=== PATIENT | female | born 1980 | race Caucasian/White ===

== ENCOUNTER → 2020-09-02 12:22 | Outpatient (CLI) | payer BC, SELFPAY ==
--- NOTE | ~2020-09-02 | MM_ITS ---
EXAMINATION: MM screening [facility] BI w raine HISTORY: Screening mammogram TECHNIQUE: Craniocaudal and mediolateral oblique 3-D tomosynthesis images were obtained and synthetic 2-D images were generated. CAD analysis was submitted and interpreted. COMPARISON: 07/25/2019, 07/14/2019 BREAST PARENCHYMAL COMPOSITION: There are scattered areas of fibroglandular density. FINDINGS: There is no evidence of suspicious mass, calcification, or architectural distortion to sugg est malignancy in either breast. There has been no suspicious interval change. IMPRESSION: 1. No mammographic evidence of malignancy. 2. Recommend routine screening mammography in one year. BI-RADS Category 1: Negative Reviewed, dictated and finalized at location A. CIPAL ENGINEER
== END ==
PROVIDERS: PCP Physician Assistant; Visit Provider Physician Assistant
DX: Z12.31 Encounter for screening mammogram for malignant neoplasm of breast (principal)
CPT/HCPCS: 77063; 77067

== ENCOUNTER → 2021-12-16 12:14 | Outpatient (CLI) | payer BC, SELFPAY ==
--- NOTE | ~2021-12-16 | MM_ITS ---
EXAMINATION: MM screening [facility] BI w raine HISTORY: Screening mammogram TECHNIQUE: Craniocaudal and mediolateral oblique 3-D tomosynthesis images were obtained and synthetic 2-D images were generated. CAD analysis was submitted and interpreted. COMPARISON: 09/02/2020, 07/25/2019, 07/14/2019 BREAST PARENCHYMAL COMPOSITION: There are scattered areas of fibroglandular density. FINDINGS: There is no suspicious mass, calcification, or architectural distortion to suggest malignan cy in either breast. There has been no suspicious interval change. IMPRESSION: 1. No mammographic evidence of malignancy. 2. Recommend routine screening mammography in one year. BI-RADS Category 1: Negative Reviewed, dictated and finalized at location A.
== END ==
PROVIDERS: PCP Physician Assistant; Visit Provider Physician Assistant
DX: Z12.31 Encounter for screening mammogram for malignant neoplasm of breast (principal)
CPT/HCPCS: 77063; 77067

== ENCOUNTER → 2022-05-01 11:05 | Outpatient (CLI) | payer OTHER, SELFPAY ==
--- NOTE | ~2022-05-01 | XR_ITS ---
XR lumbar spine 2-3V DATE: 05/01/2022 11:48 INDICATION: Low back pain TECHNIQUE: AP, lateral, coned lateral lumbosacral views COMPARISON: None FINDINGS: There is minimal levoscoliosis of lumbar spine. No fracture or bone destruction is evident. The lumbar pedicles are intact. Lumbar and lumbosacral interspaces are well preserved. The sacral il iac joints appear normal. IMPRESSION: Minimal levoscoliosis Reviewed, dictated and finalized at location A. IMPRESSION: Minimal levoscoliosis
--- NOTE | ~2022-05-01 | XR_ITS ---
XR hip LT min 2V DATE: 05/01/2022 11:48 INDICATION: Left hip pain TECHNIQUE: AP and lateral views COMPARISON: None FINDINGS: No fracture or dislocation, avascular necrosis or bone destruction. Left hip joint space ap pears well preserved. The pubic symphysis is intact. There is mild degenerative change at the sacroiliac joints. IMPRESSION: Mild degenerative change at the sacroiliac joints Negative left hip Reviewed, dictated and finalized at location A.
--- NOTE | ~2022-05-01 | XR_ITS ---
XR_[id number]_CR DATE: 05/01/2022 11:48 INDICATION: Constant margin chest pain TECHNIQUE: PA chest. 3 views of the left ribs. COMPARISON: None FINDINGS: Normal heart size. No hilar or mediastinal enlargement. The lungs are normally expanded and clear of infiltrate or consolidation. No pleural effusion or pneumothorax. Minimal dextroscoliosis o f the thoracic spine. No left rib fracture or bone destruction is detected. IMPRESSION: Negative left ribs Reviewed, dictated and finalized at Location A. Reviewed, dictated and finalized at location A. IMPRESSION: Negative left ribs
== END ==
PROVIDERS: PCP Physician Assistant; Visit Provider Physician Assistant
DX: R10.10 Upper abdominal pain, unspecified (principal); M25.552 Pain in left hip; R07.81 Pleurodynia; M53.3 Sacrococcygeal disorders, not elsewhere classified
CPT/HCPCS: 71101; 72100; 73502

== ENCOUNTER → 2022-06-03 10:13 | Outpatient (CLI) | payer OTHER, SELFPAY ==
--- NOTE | ~2022-06-03 | US_ITS ---
EXAMINATION: US abdomen complete DATE: 06/03/2022 11:11 INDICATION: Upper abd pain TECHNIQUE: Multiple grayscale and Doppler ultrasound images of the abdomen were obtained. COMPARISON: None available. FINDINGS: The visualized portions of the pancreas are normal. The liver is normal with normal echogen icity and echotexture. No surface nodularity. Normal hepatopetal flow in the main portal vein. The ga llbladder is normal with no abnormal wall thickening, pericholecystic fluid or stones. The common shannan e duct measures 5 mm. There was no sonographic Everett sign. The visualized portions of the aorta and inferior vena cava are normal. The right kidney measures 11.0 x 3.9 x 4.6. The left kidney measures 11.2 x 4.7 x 4.8. The kidneys de monstrate normal parenchymal echogenicity. There is no hydronephrosis. The spleen is normal in appear ance and measures 8.0 x 3.4 x 3.9 cm. IMPRESSION: Normal abdominal ultrasound findings. Reviewed, dictated and finalized at location K. NILE PROBATION OFFICER
== END ==
PROVIDERS: PCP Physician Assistant; Visit Provider Physician Assistant
DX: R10.10 Upper abdominal pain, unspecified (principal); M25.552 Pain in left hip; M54.50 Low back pain, unspecified; R07.81 Pleurodynia
CPT/HCPCS: 76700

== ENCOUNTER 2022-06-13 08:15 | Outpatient (CLI) | payer OTHER, SELFPAY ==
--- NOTE | ~2022-06-13 | XR_ITS ---
UGI-AIR CONTRAST/SMALL BOWEL INDICATION: Nausea. Decreased appetite. TECHNIQUE: Serial images of the upper GI tract structures and small bowel are performed following ora l administration of barium using double contrast technique. COMPARISON: None FINDINGS: Barium flowed readily through the esophagus. There is a small sliding hiatal hernia with re flux. Gastric contour, mucosa and motility are normal. The duodenal bulb fills and empties regularly and has a normal mucosal pattern. The duodenal sweep is in normal position. The mucosal pattern of the small bowel is unremarkable with normal transit time to the colon. IMPRESSION: 1: Small sliding hiatal hernia with reflux. Otherwise, unremarkable upper GI tract/small bowel.. Reviewed, dictated and finalized at location A. CTOR OF HOME CARE HOSPICE IMPRESSION: 1: Small sliding hiatal hernia with reflux. Otherwise, unremarkable upper GI tr act/small bowel..
== END 2022-06-13 08:16 | disposition home or self-care (01) ==
LOC: ANHIMG 08:17
PROVIDERS: PCP Physician Assistant; Visit Provider Physician Assistant
DX: R10.10 Upper abdominal pain, unspecified (principal); M25.552 Pain in left hip; M54.50 Low back pain, unspecified; R07.81 Pleurodynia; K44.9 Diaphragmatic hernia without obstruction or gangrene
CPT/HCPCS: 74246; 74248

== ENCOUNTER 2022-09-28 00:55 | Day surgery (SDC) | payer OTHER, SELFPAY ==
[2022-09-15 12:46] VITALS: BMI 19.6
--- NOTE | 2022-09-27 16:48 | P.HP_ITS ---
History of Present Illness History of Present Illness Consent: Risks, benefits, and alternatives have been discussed and questions answered. Patient agrees to proceed with procedure. Chief complaint: Epigastric Pain Narrative: Christina Majano is a 42 year old female Was referred for investigation of persistent abdominal pain despite taking pantoprazole 40 mg per day. She also experiences nausea frequently. She has lost about 20 lb. Recently sucralfate was added to her regimen Review of Systems Review of Systems: All systems reviewed & are unremarkable except as noted in HPI and below PMFSH Past Medical History Medical History Anxiety Family History Family History Mother Hypertension Family history of elevated blood lipids Family history of diabetes mellitus in first degree relative Sibling Family history of diabetes mellitus in first degree relative Social History Social History Smoking status: Never smoker Alcohol intake: current Substance use: current Substance use type: marijuana Other substance usage details: [facility] Living arrangements: with family Spiritual care concerns: No Meds Home Medications and Allergies Home Medications Medication Instructions Recorded Confirmed Type fluoxetine 20 mg tablet 20 mg PO DAILY 09/15/22 09/15/22 History pantoprazole 40 mg tablet,delayed 40 mg PO DAILY 09/15/22 09/15/22 History release Allergies Allergy/AdvReac Type Severity Reaction Status Date / Time No Known Allergies Allergy Unknown Verified 09/28/22 08:30 Exam Const: General: alert Orientation/consciousness: patient oriented x3 Resp: Auscultation: clear to auscultation bilaterally Cardio: Rhythm: regular rhythm GI: GI Palp: Yes Soft to palpation and No Tenderness to palpation present (GI) Neuro: General: patient oriented x3 Assessment and Plan Assessment and plan (1) Epigastric pain: Code(s): R10.13 - Epigastric pain Status: Acute Assessment and Plan: EGD with possible biopsy or dilatation or cautery.
--- NOTE | 2022-09-28 07:36 | WPDANESEPPF ---
Anes - Initial Pre Proc Eval Procedure: Operation Date: 09/28/22 09:30 Proposed Procedures p Esophagogastroduodenoscopy - Jaylon Sullivan MD Date/Time: 09/28/22 07:36 Surgeon: Jaylon Sullivan MD Pre Op Diagnosis: Epigastric Pain Patient Data Age: 42 Gender: F Height: 1.63 m Weight: 52 kg Allergies Allergy/AdvReac Type Severity Reaction Status Date / Time No Known Allergies Allergy Unknown Verified 09/28/22 08:30 Home Medications Medication Instructions Recorded Confirmed Type fluoxetine 20 mg tablet 20 mg PO DAILY 09/15/22 09/15/22 History pantoprazole 40 mg tablet,delayed 40 mg PO DAILY 09/15/22 09/15/22 History release Patient hx anesthesia problems: none Family hx anesthesia problems: none Results Review: All pre-operative results and documents have been reviewed as part of the pre-operative evaluation. [facility] Past Medical History Medical History (Updated 09/28/22 @ 07:36 by Helder Gupta DO) Anxiety Family History Family History (System 07/18/22 @ 12:40 by Juancho Magallanes) Mother Hypertension Family history of elevated blood lipids Family history of diabetes mellitus in first degree relative Sibling Family history of diabetes mellitus in first degree relative Social History Social History (System 07/18/22 @ 12:40 by Juancho Magallanes) Smoking status: Never smoker Alcohol intake: current Substance use: current Substance use type: marijuana Other substance usage details: [facility] Living arrangements: with family Spiritual care concerns: No Anes - Eval Final PreProcedure Day of Procedure 09/28/22 07:36 Patient weight: normal Heart: regular rate and rhythm Lungs: clear to auscultation and normal air movement Airway: Mallampati scale class II Neurological: alert and oriented Last oral intake: >/= 8 hours ASA classification: II Emergent: no Anesthetic plan: proceed Anesthesia type and monitoring: general GIVS and standard monitoring Results Review: All pre-operative results and documents have been reviewed as part of the pre-operative evaluation. Informed Consent: The patient's anesthetic plan and its attendant risks and benefits were discussed with the patient/family/POA. Questions were solicited and answers provided to the satisfaction of the patient/family/POA.
[2022-09-28 08:31] VITALS: BP 110/73; PULSE 60; RESP 18; TEMP 36.4; O2SAT 100
[2022-09-28] MEDS: LACTATED RINGERS 1,000 ML 150 ML IV CONT (08:38)
[2022-09-28 09:43] VITALS: BP 104/64; PULSE 59; RESP 15; O2SAT 100
[2022-09-28 09:53] VITALS: BP 108/64; PULSE 61; RESP 16; O2SAT 100
[2022-09-28 10:03] VITALS: BP 110/78; PULSE 65; RESP 20; O2SAT 100
== END 2022-09-28 10:08 | disposition home or self-care (01) ==
PROVIDERS: PCP Physician Assistant; Visit Provider Internal Medicine Gastroenterology
PROC: 0DJ08ZZ Inspection of Upper Intestinal Tract, Via Natural or Artificial Opening Endoscopic (ICD-10-PCS; CPT 43235; principal; 2022-09-28 09:30)
DX: K21.9 Gastro-esophageal reflux disease without esophagitis (principal); K29.70 Gastritis, unspecified, without bleeding; F41.9 Anxiety disorder, unspecified; F12.90 Cannabis use, unspecified, uncomplicated
CPT/HCPCS: 43239; 87081; 88305; J2001; J2704; J7120

== ENCOUNTER 2023-12-18 14:50 | Outpatient (CLI) | payer OTHER, SELFPAY ==
--- NOTE | ~2023-12-18 | MM_ITS ---
EXAMINATION: MM screening [facility] BI w raine HISTORY: Screening TECHNIQUE: Craniocaudal and mediolateral oblique 3-D tomosynthesis images were obtained and synthetic 2-D images were generated. CAD analysis was submitted and interpreted. COMPARISON: Comparison to multiple prior studies sequentially, with oldest reviewed study dated 12/2019. BREAST PARENCHYMAL COMPOSITION: Not dense: There are scattered areas of fibroglandular density. FINDINGS: There is no evidence of suspicious mass, calcification, or architectural distortion to sugg est malignancy in either breast. There has been no suspicious interval change. IMPRESSION: 1. No mammographic evidence of malignancy. 2. Recommend routine screening mammography in one year. BI-RADS Category 1: Negative Reviewed, dictated and finalized at location B.
== END 2023-12-18 14:51 | disposition home or self-care (01) ==
PROVIDERS: PCP Physician Assistant; Visit Provider Physician Assistant
DX: Z12.31 Encounter for screening mammogram for malignant neoplasm of breast (principal)
CPT/HCPCS: 77063; 77067

== ENCOUNTER 2024-05-17 22:40 | Emergency (ER) | payer OTHER, SELFPAY ==
--- NOTE | ~2024-05-17 | XR_ITS ---
Portable chest x-ray Comparison: None Clinical History: Palpitations Findings: Lungs are clear, without focal consolidation or pleural effusion. Cardiomediastinal silho uette is unremarkable. Bones and soft tissues are unremarkable. Impression: Normal chest Reviewed, dictated and finalized at location . ATION TECHNICIAN Impression: Normal chest
--- NOTE | 2024-05-17 22:43 | PC.NURSE ---
upon pt arrival into room pt attempted to do a vasal vagal maneuver and was unsuccessful.
[2024-05-17 22:45] VITALS: BP 153/94; BP 154/94; PULSE 155; PULSE 160; RESP 16; RESP 28; TEMP 36.4; O2SAT 100
--- NOTE | 2024-05-17 22:46 | ECG_ITS ---
Test Date: 2024-05-17 22:49:28 Measurements Intervals [place] Rate: 153 P: 76 GA: 119 QRS: 79 QRSD: 90 T: -76 QT: 218 QTc: 348 Interpretive Statements SINUS TACHYCARDIA WITH SHORT GA INTERVAL, POSSIBLE ATRIAL FLUTTER ST DEVIATION AND MODERATE T-WAVE ABNORMALITY, CONSIDER ANTEROLAT/INF ISCHEMIA BASELINE ARTIFACT- I, II, III, AVR, AVL, AVF ABNORMAL ECG No previous ECG available for comparison Electronically Signed On 05-18-2024 07:06:28 RESEARCH COORDINATOR by Vish Swan D.O.
[2024-05-17 22:50] VITALS: BP 153/94; PULSE 149; PULSE 164; RESP 15; O2SAT 100
--- NOTE | 2024-05-17 22:52 | PC.NURSE ---
pt states she took a 100mg grummy of thc prior to arrival at around 2130. pt states she normally takes gummies. pt states she has a hx of anxiety.
[2024-05-17] MEDS: SODIUM CHLORIDE 0.9% IV 1,000 ML 999 ML IV CONT (22:54)
--- NOTE | 2024-05-17 22:55 | PC.NURSE ---
mahesh javier attempted vasal vagal maneuver with reverse trendelenburg with patient. pt heart rate changed to 134 sinus tach while bolus of fluids infusing.
[2024-05-17 22:57] LABS: Basophils Percent Auto 0.4 % (0.2-1.2); Eosinophils Absolute Auto 0.2 K/mm3 (0-0.3); Eosinophils Percent Auto 1.6 % (0-4.4); Hematocrit 37.3 % (37.0-47.0); Hemoglobin 12.7 g/dL (12.0-15.0); Immature Granulocyte Absolute 0.02 K/mm3 (0.00-0.031); Immature Granulocyte Percent A 0.2 % (0-0.5); Lymphocytes Absolute Auto 3.28 K/mm3 (0.9-3.2); Lymphocytes Percent Auto 34.5 % (18.3-44.2); Mean Corpuscular Hemoglobin 30.4 pg (26-34); Mean Corpuscular Volume 89.2 fl (80-100); Mean Platelet Volume 9.2 fl (7.4-10.4); Monocytes Absolute Auto 0.7 K/mm3 (0.1-0.6); Monocytes Percent Auto 7.5 % (2.6-8.5); Neutrophils Absolute Auto 5.3 K/mm3 (1.3-6.7); Neutrophils Percent Auto 55.8 % (45.5-73.1); Platelet Count Result 252 k/mm3 (150-375); Red Blood Count 4.18 M/mm3 (4.2-5.4); Red Cell Distribution Width 12.5 % (11.5-14.5); White Blood Count 9.5 K/mm3 (4.5-10.0)
--- NOTE | 2024-05-17 22:59 | ED.ARRPALP ---
HPI - Arrhythmia/Palpitations General Chief Complaint: Arrhythmia/Palpitations Stated Complaint: Heart rate up and down Time Seen by Provider: 05/17/24 22:47 Source: patient Mode of arrival: ambulatory Limitations: no limitations History of Present Illness HPI narrative: This is a 44 year old female that presents to the ER for palpitations. Reports she ate a week gummy tonight. Started to feel like her heart was racing. Reports chest pressure and shortness of breath. Related Data Home Medications Medication Instructions Recorded Confirmed fluoxetine 20 mg tablet 20 mg PO DAILY 09/15/22 09/15/22 pantoprazole 40 mg tablet,delayed 40 mg PO DAILY 09/15/22 09/15/22 release Allergies Allergy/AdvReac Type Severity Reaction Status Date / Time No Known Allergies Allergy Unknown Verified 05/17/24 22:54 Review of Systems Review of Systems: CONSTITUTIONAL: Denies fever CARDIOVASCULAR: Reports chest pain, palpitations. Denies edema. RESPIRATORY: Denies cough or dyspnea. All systems reviewed & are unremarkable except as noted in HPI and below PMFSH Past Medical History Medical History Anxiety Family History Family History Mother Hypertension Family history of elevated blood lipids Family history of diabetes mellitus in first degree relative Sibling Family history of diabetes mellitus in first degree relative Social History Social History Smoking status: Never smoker Alcohol intake: current Substance use: current Substance use type: marijuana [facility] Living arrangements: with family Spiritual care concerns: No Exam Narrative: GENERAL: Well-appearing, well-nourished, and in no acute distress. HEAD: Normocephalic, atraumatic. EYES: EOMI. NECK: Supple. No JVD CHEST: Clear to auscultation. No respiratory distress. No wheezes rales or rhonchi HEART: Tachycardic, regular rate. No murmur heard. Normal peripheral pulses. EXTREMITIES: Normal range of motion. No edema. SKIN: Warm, dry, no rash. NEURO: No focal deficits. Alert and oriented x3. PSYCH: Normal mood and affect Course Course Emergency Course: patient reports relief in her discomfort. She is currently resting Vital Signs Vital signs: Vital Signs Temperature 97.5 F L 05/17/24 22:45 Pulse Rate 155 H 05/17/24 22:45 Respiratory Rate 16 05/17/24 22:45 Blood Pressure 154/94 H 05/17/24 22:45 Pulse Oximetry 100 05/17/24 22:45 Oxygen Delivery Room Air 05/17/24 22:45 Temperature 97.5 F L 05/17/24 22:45 Pulse Rate 112 H 05/17/24 23:45 Respiratory Rate 22 H 05/17/24 23:45 Blood Pressure 124/93 H 05/17/24 23:45 Pulse Oximetry 100 05/17/24 23:45 Oxygen Delivery Room Air 05/17/24 22:50 MDM - Arrhythmia/Palpitations MDM Narrative Medical decision making narrative: patient presents to the emergency department for elevated heart rate. Reports eating a cannabis gummy prior to. Patient with sinus tachycardia with rates in the 150s. Heart rate has now down trended after IV fluids and a dose of Ativan. Heart rate now 106. CBC without concerning findings. Metabolic panel with mild hypokalemia, potassium was replaced. TSH is normal. Urine without evidence of infection. Drug screen positive for cannabinoids. Chest x-ray without acute cardiopulmonary abnormality. patient reports relief in her discomfort. She is currently resting. Instructed to have close follow-up with her primary provider. She was given warnings to return to the ER Differential Diagnosis Differential diagnosis: Likely palpitations, anxiety, sinus tachycardia, artial fibrillation, artial flutter and supraventricular tachycardia Lab Data Attestation: I reviewed the patient's lab results. 05/17/24 22:49 05/17/24 22:49 Labs: Lab Results 05/17/24 05/17/24 Range/Units 22:49 23:53 WBC 9.5 (4.5-10.0) K/mm3 RBC 4.18 L (4.2-5.4) M/mm3 Hgb 12.7 (12.0-15.0) g/dL Hct 37.3 (37.0-47.0) % MCV 89.2 (80-100) fl MCH 30.4 (26-34) pg MCHC 34.0 (32-36) g/dl RDW 12.5 (11.5-14.5) % Plt Count 252 (150-375) k/mm3 MPV 9.2 (7.4-10.4) fl Immature Gran % (Auto) 0.2 (0-0.5) % Neut % (Auto) 55.8 (45.5-73.1) % Lymph % (Auto) 34.5 (18.3-44.2) % Davison % (Auto) 7.5 (2.6-8.5) % Eos % (Auto) 1.6 (0-4.4) % Baso % (Auto) 0.4 (0.2-1.2) % Lymph # (Auto) 3.28 H (0.9-3.2) K/mm3 Davison # (Auto) 0.7 H (0.1-0.6) K/mm3 Eos # (Auto) 0.2 (0-0.3) K/mm3 Baso # (Auto) 0.0 (0.0-0.1) K/mm3 Abs Immat Gran (auto) 0.02 (0.00-0.031) K/mm3 Absolute Neuts (auto) 5.3 (1.3-6.7) K/mm3 Absolute Nucleated RBC 0.000 (0.0-0.012) K/mm3 Nucleated RBC % 0.0 (0.0-0.2) % Sodium 136 L (137-145) mmol/L Potassium 3.1 L (3.4-5.0) mmol/L Chloride 102 (98-107) mmol/L Carbon Dioxide 25 (22-30) mmol/L Anion Gap 9 (4-12) mmol/L BUN 17 (7-17) mg/dL Creatinine 0.60 L (0.7-1.0) mg/dL Estim Creat Clear Calc 87 ml/min Estimated GFR > 60 (59 - ) Glucose 165 H (65-110) mg/dL Calcium 9.0 (8.4-10.2) mg/dL Magnesium 1.9 (1.6-2.3) mg/dL Total Bilirubin 0.3 (0.2-1.3) mg/dL AST 25 (14-36) U/L ALT 12 (6-35) U/L Alkaline Phosphatase 76 (38-126) U/L Total Protein 8.0 (6.3-8.2) g/dL Albumin 4.5 (3.5-5.1) g/dL TSH (Reflex) 4.160 (0.465-4.68) uIU/mL Free T4 0.98 (0.78-2.19) ng/dL Total T3 Pending Urine Color Yellow (Yellow) Urine Appearance Clear (Clear) Urine pH 5.5 (5.0-9.0) Ur Specific [place] 1.025 (1.001-1.035) Urine Protein Negative (Negative) mg/dL Urine Glucose (UA) Negative (Negative) mg/dL Urine Ketones Negative (Negative) mg/dL Ur Blood (Man) Negative (Negative) Urine Nitrate Negative (Negative) Urine Bilirubin Negative (Negative) Urine Urobilinogen 0.2 (<2.0) mg/dL Leukocyte Esterase Rfl Negative (Negative) [place]/UL Urine Opiates Screen Negative (Negative) Urine Methadone Screen Negative (Negative) Ur Barbiturates Screen Negative (Negative) Ur Phencyclidine Scrn Negative (Negative) Ur Amphetamine Screen Negative (Negative) U Benzodiazepines Scrn Negative (Negative) Urine Cocaine Screen Negative (Negative) U Cannabinoids Screen Positive A (Negative) Imaging Data Radiologist's impression: Chest x-ray: No focal consolidation, pleural effusion, or pneumothorax. No cardiomegaly ECG Data EKG #1: ECG completion date: 05/17/24 EKG Interpretation: tachycardia, sinus rhythm, ST depression and normal QT EKG #2: ECG completion date: 05/18/24 EKG Interpretation: tachycardia, sinus rhythm, no ST changes and normal QT Critical Care Time Critical Care Time Critical Care Time: No Discharge Plan Discharge Clinical Impression: Sinus tachycardia Patient Disposition: Home, Self-Care Condition: Improved Instructions: Tachycardia (ED) Additional Instructions: Return to the Emergency Department if you experience fever, chest pain, shortness of breath, your heart is racing, or any other symptoms that are concerning to you Rest. Remain well hydrated. Take your home medications as prescribed Follow up with your primary care doctor Prescriptions: No Action pantoprazole 40 mg Tablet,Delayed Release (Dr/Ec) 40 mg PO DAILY fluoxetine 20 mg Tablet 20 mg PO DAILY Follow-up/Referrals: Guillermo,JUNG Cedeno [Primary Care Provider] - 3 Days
[2024-05-17 23:00] VITALS: BP 133/94; PULSE 134; RESP 18; O2SAT 100
[2024-05-17 23:13] LABS: Alanine Aminotransferase 12 U/L (6-35); Albumin Level 4.5 g/dL (3.5-5.1); Alkaline Phosphatase 76 U/L (38-126); Anion Gap 9 mmol/L (4-12); Aspartate Amino Transferase 25 U/L (14-36); Bilirubin,Total 0.3 mg/dL (0.2-1.3); Blood Urea Nitrogen 17 mg/dL (7-17); Carbon Dioxide 25 mmol/L (22-30); Chloride 102 mmol/L (98-107); Estimated CRCL calculation 87 ml/min; Estimated Glomerular Filt Rate > 60; Glucose 165 mg/dL (65-110); Potassium 3.1 mmol/L (3.4-5.0); Sodium 136 mmol/L (137-145)
[2024-05-17 23:15] VITALS: BP 140/103; PULSE 127; RESP 16; O2SAT 100
[2024-05-17 23:30] VITALS: BP 135/96; PULSE 116; RESP 18; O2SAT 100
[2024-05-17 23:45] VITALS: BP 124/93; PULSE 112; RESP 22; O2SAT 100
[2024-05-17 23:54] LABS: Magnesium 1.9 mg/dL (1.6-2.3)
[2024-05-18 00:11] LABS: Add Urine Microscopic? NO; Appearance Urine Clear (Clear); Bilirubin Urine Negative (Negative); Blood Urine Negative (Negative); Color Urine Yellow (Yellow); Glucose Urine UA Negative (Negative); Ketones Urine Negative (Negative); Leukocyte Esterase Ur Negative LEU/UL (Negative); Nitrate Urine Negative (Negative); Protein Urine Negative (Negative); Specific Grav Ur 1.025 (1.001-1.035); Urobilinogen Urine 0.2 mg/dL (<2.0); pH Urine 5.5 (5.0-9.0)
[2024-05-18] MEDS: SODIUM CHLORIDE 0.9% IV 1,000 ML 999 ML IV CONT (00:13)
[2024-05-18] MEDS: POTASSIUM CHLORIDE 20 MEQ ER TABLET 40 MEQ PO (00:13)
[2024-05-18] MEDS: LORazepam INJ (*CRX) 2 MG/ML VIAL 0.5 MG IV PUSH (00:14)
[2024-05-18 00:15] VITALS: BP 115/86; PULSE 110; RESP 16; O2SAT 99
[2024-05-18 00:29] LABS: Amphetamine Screen Urine Negative (Negative); Barbiturate Screen Urine Negative (Negative); Benzodiazepines Screen Urine Negative (Negative); Cannabinoid Screen Urine Positive (Negative); Cocaine Screen Urine Negative (Negative); Methadone Screen Urine Negative (Negative); Opiate Screen Urine Negative (Negative); Phencyclidine Screen Urine Negative (Negative)
[2024-05-18 00:42] LABS: Free T4 Free Thyroxine Reflex 0.98 ng/dL (0.78-2.19)
--- NOTE | 2024-05-18 00:55 | ECG_ITS ---
Test Date: 2024-05-18 01:10:31 Measurements Intervals [place] Rate: 110 P: 52 [place]: 153 QRS: 74 QRSD: 82 T: 38 QT: 314 QTc: 426 Interpretive Statements SINUS TACHYCARDIA LOW QRS VOLTAGE IN PRECORDIAL LEADS NONSPECIFIC ST-T WAVE ABNORMALITY- ANTEROLAT/INF LEADS BASELINE ARTIFACT- I, II, III, AVR, AVL, AVF BORDERLINE ECG Compared to ECG 05/17/2024 22:49:28 HEART RATE HAS DECREASED POSSIBLE ISCHEMIA NO LONGER PRESENT Electronically Signed On 05-18-2024 07:07:26 FAGOTER by Vish Swan D.O.
[2024-05-18 01:17] VITALS: PULSE 107; RESP 16; O2SAT 97
[2024-05-18 01:37] LABS: Total Triiodothyronine (T3) 1.29 NG/ML (0.97-1.69)
== END 2024-05-18 01:36 | disposition home or self-care (01) ==
PROVIDERS: Emergency Provider Physician Assistant; PCP Physician Assistant
DX: R00.0 Tachycardia, unspecified (principal); F41.9 Anxiety disorder, unspecified; Z79.899 Other long term (current) drug therapy
CPT/HCPCS: 36415; 71045; 80053; 80307; 81003; 83735; 84439; 84443; 84480; 85025; 93005; 96361; 96374; 99284; A9270; J2060; J7030

== ENCOUNTER 2024-09-11 15:11 | Outpatient (CLI) | payer OTHER, SELFPAY ==
[2024-09-11 15:57] LABS: Basophils Percent Auto 0.4 % (0.2-1.2); Eosinophils Absolute Auto 0.1 K/mm3 (0-0.3); Eosinophils Percent Auto 0.9 % (0-4.4); Hematocrit 37.3 % (37.0-47.0); Hemoglobin 12.5 g/dL (12.0-15.0); Immature Granulocyte Absolute 0.01 K/mm3 (0.00-0.031); Immature Granulocyte Percent A 0.2 % (0-0.5); Lymphocytes Absolute Auto 1.59 K/mm3 (0.9-3.2); Lymphocytes Percent Auto 29.2 % (18.3-44.2); Mean Corpuscular HGB Conc 33.5 g/dl (32-36); Mean Corpuscular Hemoglobin 30.3 pg (26-34); Mean Corpuscular Volume 90.3 fl (80-100); Monocytes Absolute Auto 0.3 K/mm3 (0.1-0.6); Monocytes Percent Auto 6.1 % (2.6-8.5); Neutrophils Absolute Auto 3.5 K/mm3 (1.3-6.7); Neutrophils Percent Auto 63.2 % (45.5-73.1); Platelet Count Result 250 k/mm3 (150-375); Red Blood Count 4.13 M/mm3 (4.2-5.4); Red Cell Distribution Width 12.3 % (11.5-14.5); White Blood Count 5.5 K/mm3 (4.5-10.0)
[2024-09-11 16:09] LABS: Alanine Aminotransferase 14 U/L (6-35); Albumin Level 4.2 g/dL (3.5-5.1); Alkaline Phosphatase 52 U/L (38-126); Anion Gap 8 mmol/L (4-12); Aspartate Amino Transferase 21 U/L (14-36); Bilirubin,Total 0.3 mg/dL (0.2-1.3); Blood Urea Nitrogen 11 mg/dL (7-17); Calcium 8.9 mg/dL (8.4-10.2); Carbon Dioxide 26 mmol/L (22-30); Chloride 102 mmol/L (98-107); Estimated Glomerular Filt Rate > 60; Glucose 79 mg/dL (65-110); Potassium 4.1 mmol/L (3.4-5.0); Sodium 136 mmol/L (137-145)
--- OUTSIDE RECORDS SUMMARY | 2024-09-11 16:27 | XMS_ITS | Clinical Summary ---
Author Organization [facility] Address [address] [place] [address] Care Team Providers Care Pier Master Assistant Name Role Phone Pao Bolanos Primary Care Pr ovider Source Comments [facility],non-owned Affiliates and Associated Physician Practices is amultiple site organization consisting of ambulatory clinics and hospital sitesin [place], [place], [place] and [place]. This disclosure is being madepursuant to the Care Everywhere program and may not contain all information available regarding this patient. Last updated 18.[employer] [facility] Allergies No known active allergies Medications Be aware that medications may not be up to date on this document. Always verify current medications with the patient. No known medications Active Problems No known active problems Family History Medical History Relation Name Comments Arthritis - Rheumatoid Father Hypertension Father Arthritis - Rheumatoid Mother Bipolar Disorder Mother CAD (Coronary Artery Disease) Mother CVA Mother Diabetes - Type 2 Mother Drug Abuse Mother Hypertension Mother Migraine Mother Other Mother stomach ulcer & tension headaches Other - Hepatic/Liver Mother Renal Disease Mother Seizures Mother Arthritis - Rheumatoid Sister Bipolar Disorder Sister Diabetes - Type 2 Sister Drug Abuse Sister Hypertension Sister Migraine Sister Schizophrenia Sister Relation Name Status Comments Father Alive Mother Sister Alive Social History Tobacco Use Types Packs/Day Years Used Date Smoking Tobacco: Never Smokeless Tobacco: Never Alcohol Use Standard Drinks/Week Comments Yes 0 (1 standard drink = 0.6 oz pur e alcohol) Sex and Gender Information Value Date Recorded Sex Assigned at Not on file Gender Identity Female 01/18/2018 9:17 AM CDT Sexual Orientation Not on file Last Filed Vital Signs Vital Sign Reading Time Taken Comments Blood Pressure 124/82 02/04/2018 11:47 AM CDT Pulse 60 02/04/2018 11:47 AM CDT Temperature - - Respiratory Rate 16 02/04/2018 11:47 AM CDT Oxygen Saturation 100% 02/04/2018 11:47 AM CDT Inhaled Oxygen Concentration - - Weight 56.7 kg (125 lb) 02/04/2018 11:47 AM CDT Height 162.6 cm (5' 4 ) 02/04/2018 11:47 AM CDT Body Mass Index 21.46 02/04/2018 11:47 AM CDT Plan of Treatment Health Maintenance Due Date Last Done Comments COLOGUARD (AGES 45-75) - COL ON CA SCREENING 1979 COLON MONITORING 1979 COLONOSCOPY - COLON CA SCREENING 1979 CT COLONOGRAPHY - COLON CA SCREENING 1979 Colorectal Cancer Screening 1979 FIT - COLON CA SCREENING 1979 FLEX SIG - COLON CA SCREENING 1979 LIPID TESTING 1979 MAMMOGRAM 1979 PAP SMEAR 1979 HIV SCREENING 1994 HEPATITIS C SCREENING 05/05/1997 DTAP/TDAP/TD VACCINES (1 - Tdap) 1998 HEPATITIS B VACCINE (1 of 3 - 19+ 3-dose series) 1998 COVID-19 VACCINE (1 - 2023-2 5 season) 2024 INFLUENZA VACCINE (#1) 2024 DEPRESSION SCREENING 07/09/2024 ZOSTER VACCINE (1 of 2) 2029 HIB VACCINE Aged Out No longer eligi ble based on patient's age to complete this topic HPV VACCINE Aged Out No longer eligi ble based on patient's age to complete this topic MENINGOCOCCAL (Group B) VACCINE Aged Out No longer eligible based on patient's age to complete this topic MENINGOCOCCAL VACCINE Aged Out No denise juan eligible based on patient's age to complete this topic PNEUMOCOCCAL VACCINE Aged Out No long er eligible based on patient's age to complete this topic Care Teams Pier Master Assistant Relationship Specialty Start Date End Date Pao Bolanos PA [address] [place] [address] [place] [id number] PCP - General 10/23/22
--- OUTSIDE RECORDS SUMMARY | 2024-09-11 16:27 | XMS_ITS | Data Portability ---
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 Plan of Treatment Reminders Order Date Submit Date Provider Last Modified By Organization Details Last Modified Time Details Appointments ANY 15 2024 02:00P M KADEN Matson Not available Not available Not available Lab TSH + free T4, serum 2023 Work in Field [facility], [address], [place], [address], 05/22/2024 09:33:58 lipid panel, serum 2023 Work in Field [facility], [address], [place], [address], 05/22/2024 09:33:58 CMP, serum or plasma [facility]23 [facility], [address], [place], [address], 05/29/2024 12:07:33 CBC w/ auto diff [facility], [address], [place], [address], 05/29/2024 12:08:04 HbA1c (hemog lobin A1c), blood 2023 [facility], [address], [place], [address], 05/29/2024 12:07:54 Referral None record ed. Procedures None record ed. Surgeries None record ed. Imaging None record ed. Medication Orders Prozac 10 mg capsul e 2023 024 [facility], [address], [place], [address], 05/30/2024 13:38:22 Patient TargetsNo targets recorded. Patient InstructionsNo instructions recorded. Reason for Referral None Reported. Results Created Date Observation Date Name Description Value Unit Range Abnormal Flag Note LastModifiedBy Organization Detail LastModifiedTime 09/12/19 elect rocar diogr am No observ ation record ed. ABHISHEK In-Office Order Internal Use Only DO Not Attach Compendium DO Not Attach Compendium, Do Not Delete/merge, [id number] 09/11/2024 15:37:50 09/12/19 25 09/11/2024 elect rocar diogr am No observ ation record ed. ABHISHEK In-Office Order Internal Use Only DO Not Attach Compendium DO Not Attach Compendium, Do Not Delete/merge, [id number] 09/11/2024 15:45:31 Result Notes None recorded. Problems Name Problem SNOMED Code Status Onset Date Resolution Date Notes Provider Name and Address Organization Details Recorded Time Premenstrual dysphoric disorder 339229 Active 2023 KADEN Matson Attn: Maggy g,[address] [place], [address] [place] [address] 4 09:57:34 Body mass index 20-24 - normal 236614043 Active 2024 Claire Gilbert [facility], [place] - [facility] 5 15:07:38 Problem Notes None recorded. Procedures Surgical History Date Name Laterality Status Provider Name and Address Organization Details Recorded Time section completed Jack Quinonez [place] 05/08/2024 09:50:28 LEEP completed Jack Quinonez [place] 05/08/2024 11:33:54 Imaging Results Imaging Date Name Status LastModified by Organization Details LastModified Time 09/11/2024 electrocardiogram completed ABHISHEK In-Offi ce Order Internal Use Only DO Not Attach Compendium DO Not Attach Compendium, Do Not Delete/merge, [id number] 09/11/2024 15:37:50 09/11/2024 electrocardiogram completed ABHISHEK In-Offi ce Order Internal Use Only DO Not Attach Compendium DO Not Attach Compendium, Do Not Delete/merge, [id number] 09/11/2024 15:45:31 Procedure Notes None recorded. Medical Equipment None Reported. Allergies No known drug allergies Medications Name Sig Start Date Stop Date Status Note LastModified by Organization Details LastModified Time fluoxetine 10 mg capsule TAKE 1 CAPSULE BY MOUTH ONCE DAILY 05/30 completed Not Available Not Available Not Available fluoxetine 20 mg capsule TAKE 1 CAPSULE BY MOUTH ONCE DAILY active Not Available Not Available No t Available clonazepam 0.25 mg disintegrat ing tablet Place 1 tablet twice a day by transling ual route as needed, for anxiety breakthro ugh. 2023 active Not Available Not Available Not Avai lable Vitals Date Recorded Body weight Respiratory rate Body mass index (BMI) Body height Oxygen saturation Oxygen saturation in Arterial blood by Pulse oximetry Heart rate Systolic blood pressure Diastolic blood pressure Provider Name and Address Organization Details Last Updated DateTime 4 35357.6 4 g 18 /min 21.6 kg/m2 162.56 cm 100 % 100 % 77 /min 118 mm[Hg] 82 mm[Hg] Jack Quinonez [place] - [facility] 4 09:52:46 Date Recorded Body height Body mass index (BMI) Body weight Respiratory rate Oxygen saturation Oxygen saturation in Arterial blood by Pulse oximetry Heart rate Systolic blood pressure Diastolic blood pressure Provider Name and Address Organization Details Last Updated DateTime 5 162.56 cm 20.1 kg/m2 96521.0 3 g 16 /min 98 % 98 % 100 /min 140 mm[Hg] 90 mm[Hg] Claire Gilbert [place] - [facility] 5 15:04:25 Social History Question Answer Notes LastModified by Organizat ion Details LastModified Time Tobacco Smoking Status Never Smoker Jack Quinonez MA null, [place] 05/08/2024 09:51:06 Do You Have An Advance Directive? Yes Information not available 05/08/2024 What Is Your Level Of Alcohol Consumption? Occasional Information not available 05/08/2024 Are You Blind Or Do You Have Difficulty Seeing? No Glasses Information not available 05/08/2024 What Is Your Level Of Caffeine Consumption? Moderate Information not available 05/08/2024 In The 14 Days Before Symptom Onset, Have You Had Close Contact With A Laboratory-confir med COVID-19 While That Case Was Ill? No Information not available 05/08/2024 In The 14 Days Before Symptom Onset, Have You Had Close Contact With A Person Who Is Under Investigation For COVID-19 While That Person Was Ill? No Information not available 05/08/2024 Have You Been To An Area Known To Be High Risk For COVID-19? No Information not available 05/08/2024 Are You Currently Employed? Yes Information not available 05/08/2024 Are You Deaf Or Do You Have Serious Difficulty Hearing? No Information not available 05/08/2024 What Type Of Diet Are You Following? REGULAR Information not available 05/08/2024 Are There Any Guns Present In Your Home? No Information not available 05/08/2024 What Was The Date Of Your Most Recent Tobacco Screening? 05/08/2024 Information not available 05/08/2024 What Is Your Relationship Status? Information not available 05/08/2024 Do You Use Your Seat Belt Or Car Seat Routinely? Yes Information not available 05/08/2024 Do You Have Smoke And Carbon Monoxide Detectors In Your Home? Yes Information not available 05/08/2024 Do You Use Any Illicit Or Recreational Drugs? No Information not available 05/08/2024 Do You Use Sunscreen Routinely? Yes Information not available 05/08/2024 Has Tobacco Cessation Counseling Been Provided? No Information not available 05/08/2024 Do You Or Have You Ever Used Any Other Forms Of Tobacco Or Nicotine? No Information not available 05/08/2024 Sex: Female Functional Status Question Answer Note LastModified by Organizat ion Details LastModified Time Are you able to care for yourself? Yes Information not available 05/08/2024 What is your exercise level? Occasional Information not available 05/08/2024 Mental Status None recorded. Family History Relationship Description Onset Age of this Age Resolved Age Notes LastModified by Organization Details LastModified Time Mother Cerebrovascu lar accident [email or web address] Not available 11:34:09 Mother Depressive disorder tcarterma Not available 2023 11:34:18 Mother Diabetes mellitus tcarterma Not available 2023 11:34:25 Mother Hypertensive disorder tcarterma Not available 2023 11:34:31 Mother Hypercholest erolemia tcarterma Not available 2023 11:34:36 Mother Kidney disease tcarterma Not available 2023 11:34:41 Sister Depressive disorder tcarterma Not available 2023 11:34:18 Sister Diabetes mellitus tcarterma Not available 2023 11:34:25 Father Hypertensive disorder tcarterma Not available 2023 11:34:31 Medical History Condition Response Coronary Artery Disease N Other N Atrial Fibrillation N High Blood Pressure N Depression N COPD N Blood Clots N Anxiety Disorder Y Muscle, Joint, or Bone Problems N Acid Reflux (GERD) Y Cancer N Stroke N High Cholesterol N Liver Disease N Headaches N Kidney or Bladder Problems N Thyroid Problems N GI Problems N Have you had a mammogram in the last yea r? N Skin Problems N Anemia N Heart Attack ([place]) N Diabetes N Seizures/Epilepsy N Have you had a colonoscopy in the last 1 0 years? N Asthma N Allergies N Have you had a PSA blood test in the las t year? N Hepatitis N Heart Failure N Osteoporosis N Gynecological History Statement/Question Response Menses Monthly Y Duration of Flow (days) 5 Flow Moderate Date of LMP 04/18/2024 LMP Approximate Obstetrics History GPAL:G 2 P 2 0 0 2 Type Value Full Term 2 Induced 0 Spontaneous 0 Premature 0 Living 2 Total 2 Immunizations Vaccine Type Date Status Note Provider Nam e and Address Organization Details Recorded Time COVID-19, mRNA, LNP-S, PF, 100 mcg/0.5mL dose or 50 mcg/0.25mL dose 06/15/2021 completed VIELKA Mc[place]on, [place] - [facility] 05/08/2024 09:50:52 COVID-19, mRNA, LNP-S, PF, 30 mcg/0.3 mL dose 09/02/2020 completed VIELKA [place], [place] [facility] 05/08/2024 09:50:52 COVID-19, mRNA, LNP-S, PF, 30 mcg/0.3 mL dose 09/23/2020 completed VIELKA Mckeon, [place] - [facility] 05/08/2024 09:50:52 COVID-19, mRNA, LNP-S, bivalent, PF, 30 mcg/0.3 mL dose 05/03/2022 completed VIELKA Mckeon, [place] [facility] 05/08/2024 09:50:52 COVID-19, mRNA, LNP-S, PF, 50 mcg/0.5 mL 05/01/2023 completed VIELKA [place] [facility] 05/08/2024 09:50:52 Influenza, split virus, quadrivalent, PF 05/01/2023 completed VIELKA Mc[place] [facility] 05/08/2024 09:50:52 Influenza, split virus, quadrivalent, PF 05/03/2022 completed VIELKA [place] [facility] 05/08/2024 09:50:52 Influenza, split virus, quadrivalent, PF 05/05/2021 completed VIELKA Mckeon, [place] [facility] 05/08/2024 09:50:52 Past Encounters Encounter ID Performer Location Encounter Start Date Encounter Closed Date Diagnosis/Indication Diagnosis SNOMED-CT Code Diagnosis ICD10 Code Diagnosis Note [id number] KADEN Matson [facility] Mauri Mehta [address] [place] [address] 05/08/2024 09:35:59 05/08/2024 10:32:10 Adult health examination 103497435 Z00.00 Annual wellness exam completed. Fasting labs ordered Cholesterol screening 27 1440135 Z13.220 Diabetes m ellitus screening 559578283 Z13.1 Long-term drug therapy 196572707 Z79.891 Thyroid di sorder screening 857409361 Z13.29 Premenstru al dysphoric disorder 653773 F32.81 Refill on Prozac 10 mg daily. Very stable on therapy [id number] KADEN Matson [facility] [place] Mehta [address] [place] [address] 09/11/2024 14:45:07 09/11/2024 16:11:07 Body mass index 20-24 - normal 359806087 Z68.20 Positive s creening for depression on PHQ-9 (Patient Health Questionnaire 9) 5952708718 80636 Z13.31 Chest pain 47251976 R07. 9 Dyspnea 797615513 R06.00 Long-term drug therapy 878456392 Z79.891 Health Concerns Section Related Observation LastModified by Organization Detai ls LastModified Time None Recorded Concern Status LastModified by Organization Details LastModified Time None Recorded Advance Directives Directive Y: Payers Encounter Date Sequence Insurance Name Policy Number Policy Gamez Covered Member ID Gamez Member ID Guarantor Name 05/08/2024 [facility] [id number] Christina Melecio [id number] Christina Majano Notes Date Note Type Note Provider Name and Address Organization Details Recorded Time 05/08/2024 text/html Patient is stabl e on Prozac 10 mg daily for management of underlying premenstrual mood dysphoric disorder. She has no complaints. She would like to have updated labs. KADEN Matson Attn: Accounting,[address] [facility], [place], [address], [facility] 05/08/2024 16:40:39 OBGyn Episode No OBEpisode recorded.
--- OUTSIDE RECORDS SUMMARY | 2024-09-11 16:27 | XMS_ITS | Data Portability ---
Author Organization [place] [facility], Main Office Address [address] [place] [address] Assessment No assessment recorded. Plan of Treatment Reminders Order Date Submit Date Provider Last Modified By Organization Details Last Modified Time Details Appointments None recorded. Lab CMP, serum or plasma 2022 023 [facility], [address], [place], [address], 4 10:11:15 CBC w/ auto diff 2022 023 [facility], [address], [place], [address], 4 10:11:15 TSH + free T4, serum 2022 023 [facility], [address], [place], [address], 4 10:11:15 lipid panel, serum 2022 023 [facility], [address], [place], [address], 4 10:11:14 HbA1c (hemoglobi n A1c), blood 2022 023 [facility], [address], [place], [address], 4 10:11:14 Referral None recorded. Procedures None recorded. Surgeries None recorded. Imaging MAMMO, screening, bilateral 2022 023 [email or web address] Not available 4 10:11:21 Medication Orders None recorded. Patient TargetsNo targets recorded. Patient InstructionsNo instructions recorded. Reason for Referral None Reported. Results Created Date Observation Date Name Description Value Unit Range Abnormal Flag Note LastModifiedBy Organization Detail LastModifiedTime 06/09/20 21 06/10/2021 REFLE XIVE URINE CULTU RE reflexive urine culture NO CULTU RE INDIC ATED Not Available [address], [address], 06/10/2021 04:16:54 06/09/2006/10/2021 URINA LYSIS , COMPL ETE W/REF RENE TO CULTU RE color yellow yellow normal Not Available [address], [address], 06/10/2021 04:16:53 06/09/2006/10/2021 URINA LYSIS , COMPL ETE W/REF RENE TO CULTU RE appearance clear clear normal Not Available [address], [address], 06/10/2021 04:16:53 06/09/2006/10/2021 URINA LYSIS , COMPL ETE W/REF RENE TO CULTU RE specific gravity 1.010 1.001- 1.035 normal Not Available [address], [address], 06/10/2021 04:16:53 06/09/2006/10/2021 URINA LYSIS , COMPL ETE W/REF RENE TO CULTU RE pH 6.0 5.0-8. 0 normal Not Available [address], [address], 06/10/2021 04:16:53 06/09/20 21 06/10/2021 URINA LYSIS , COMPL ETE W/REF RENE TO CULTU RE glucose negati ve negati ve normal Not Available [address], [place], [address], 06/10/2021 04:16:53 06/09/20 21 06/10/2021 URINA LYSIS , COMPL ETE W/REF RENE TO CULTU RE bilirubin negati ve negati ve normal Not Available [facility] [address] [address] [place], [address], 06/10/2021 04:16:53 06/09/20 21 06/10/2021 URINA LYSIS , COMPL ETE W/REF RENE TO CULTU RE ketones negati ve negati ve normal Not Available [facility] [address] [address] [place], [address], 06/10/2021 04:16:53 06/09/20 21 06/10/2021 URINA LYSIS , COMPL ETE W/REF RENE TO CULTU RE occult blood negati ve negati ve normal Not Available [facility] [address] [address], [place], [address], 06/10/2021 04:16:53 06/09/20 21 06/10/2021 URINA LYSIS , COMPL ETE W/REF RENE TO CULTU RE protein negati ve negati ve normal Not Available [facility] [address] [address] [place], [address], 06/10/2021 04:16:53 06/09/20 21 06/10/2021 URINA LYSIS , COMPL ETE W/REF RENE TO CULTU RE nitrite negati ve negati ve normal Not Available [facility] [address] [address] [place], [address], 06/10/2021 04:16:53 06/09/20 21 06/10/2021 URINA LYSIS , COMPL ETE W/REF RENE TO CULTU RE leukocyte esterase negati ve negati ve normal Not Available [facility] [address] [address] [place], [address], 06/10/2021 04:16:53 06/09/20 21 06/10/2021 URINA LYSIS , COMPL ETE W/REF RENE TO CULTU RE WBC none seen /hpf < or = 5 normal Not Available [address], [address], 06/10/2021 04:16:53 06/09/20 21 06/10/2021 URINA LYSIS , COMPL ETE W/REF RENE TO CULTU RE RBC none seen /hpf < or = 2 normal Not Available [address], [address], 06/10/2021 04:16:53 06/09/20 21 06/10/2021 URINA LYSIS , COMPL ETE W/REF RENE TO CULTU RE squamous epithelial cells 0-5 /hpf < or = 5 Not Available [address], [address], 06/10/2021 04:16:53 06/09/20 21 06/10/2021 URINA LYSIS , COMPL ETE W/REF RENE TO CULTU RE bacteria few /hpf none seen abnormal Not Available [address], [address], 06/10/2021 04:16:53 06/09/20 21 06/10/2021 URINA LYSIS , COMPL ETE W/REF RENE TO CULTU RE hyaline cast none seen /lpf none seen normal Not Available [address], [address], 06/10/2021 04:16:53 06/09/20 21 06/10/2021 CBC (INCL UDES DIFF/ PLT) white blood cell count 5.7 thous and/u L 3.8-10 .8 normal Not Available [address], [address], 06/10/2021 04:16:52 06/09/20 21 06/10/2021 CBC (INCL UDES DIFF/ PLT) red blood cell count 4.84 andi on/uL 3.80-5 .10 normal Not Available [address], [address], 06/10/2021 04:16:52 06/09/20 21 06/10/2021 CBC (INCL UDES DIFF/ PLT) hemoglobin 14.3 g/dL 11.7-1 5.5 normal Not Available [address], [address], 06/10/2021 04:16:52 06/09/20 21 06/10/2021 CBC (INCL UDES DIFF/ PLT) hematocrit 44.5 % 35.0-4 5.0 normal Not Available [address], [address], 06/10/2021 04:16:52 06/09/2006/10/2021 CBC (INCL UDES DIFF/ PLT) MCV 91.9 fL 80.0-1 00.0 normal Not Available [address], [address], 06/10/2021 04:16:52 06/09/2006/10/2021 CBC (INCL UDES DIFF/ PLT) MCH 29.5 pg 27.0-3 3.0 normal Not Available [address], [address], 06/10/2021 04:16:52 06/09/2006/10/2021 CBC (INCL UDES DIFF/ PLT) MCHC 32.1 g/dL 32.0-3 6.0 normal Not Available [address], [address], 06/10/2021 04:16:52 06/09/2006/10/2021 CBC (INCL UDES DIFF/ PLT) RDW 12.1 % 11.0-1 5.0 normal Not Available [facility] [address], [address], 06/10/2021 04:16:52 06/09/20 21 06/10/2021 CBC (INCL UDES DIFF/ PLT) platelet count 332 thous and/u L 140-40 0 normal Not Available [address], [address], 06/10/2021 04:16:52 06/09/20 21 06/10/2021 CBC (INCL UDES DIFF/ PLT) MPV 9.2 fL 7.5-12 .5 normal Not Available [address], [address], 06/10/2021 04:16:52 06/09/20 21 06/10/2021 CBC (INCL UDES DIFF/ PLT) absolute neutrophils 3471 cells /uL 1500-7 800 normal Not Available [address], [address], 06/10/2021 04:16:52 06/09/20 21 06/10/2021 CBC (INCL UDES DIFF/ PLT) absolute lymphocytes 1744 cells /uL 850-39 00 normal Not Available [address], [address], 06/10/2021 04:16:52 06/09/20 21 06/10/2021 CBC (INCL UDES DIFF/ PLT) absolute monocytes 353 cells /uL 200-95 0 normal Not Available [address], [address], 06/10/2021 04:16:52 06/09/20 21 06/10/2021 CBC (INCL UDES DIFF/ PLT) absolute eosinophils 91 cells /uL 15-500 normal Not Available [address], [address], 06/10/2021 04:16:52 06/09/20 21 06/10/2021 CBC (INCL UDES DIFF/ PLT) absolute basophils 40 cells /uL 0-200 normal Not Available [address], [address], 06/10/2021 04:16:52 06/09/20 21 06/10/2021 CBC (INCL UDES DIFF/ PLT) neutrophils 60.9 % normal Not Available [facility] [address], [address], 06/10/2021 04:16:52 06/09/20 21 06/10/2021 CBC (INCL UDES DIFF/ PLT) lymphocytes 30.6 % normal Not Available [facility] [address], [address], 06/10/2021 04:16:52 06/09/20 21 06/10/2021 CBC (INCL UDES DIFF/ PLT) monocytes 6.2 % normal Not Available [address], [address], 06/10/2021 04:16:52 06/09/20 21 06/10/2021 CBC (INCL UDES DIFF/ PLT) eosinophils 1.6 % normal Not Available [address], [address], 06/10/2021 04:16:52 06/09/20 21 06/10/2021 CBC (INCL UDES DIFF/ PLT) basophils 0.7 % normal Not Available [address], [address], 06/10/2021 04:16:52 06/09/20 21 06/10/2021 HEMOG LOBIN A1C hemoglobin A1C 5.0 %_of_ total _HGB <5.7 normal Not Available [address], [address], 06/10/2021 04:16:52 06/09/20 21 06/10/2021 COMPR EHENS CECILIA METAB OLIC PANEL AST 14 U/L 10-30 normal Not Available [facility] [address] [address], [place], [address], 06/10/2021 04:16:51 06/09/20 21 06/10/2021 COMPR EHENS CECILIA METAB OLIC PANEL ALT 11 U/L 6-29 normal Not Available [address], [address], 06/10/2021 04:16:51 06/09/20 21 06/10/2021 COMPR EHENS CECILIA METAB OLIC PANEL glucose 79 mg/dL 65-99 normal Fasti ng refer ence inter suman Not Available [address], [address], 06/10/2021 04:16:51 06/09/20 21 06/10/2021 COMPR EHENS CECILIA METAB OLIC PANEL urea nitrogen (BUN) 14 mg/dL 7-25 normal Not Available [address], [address], 06/10/2021 04:16:51 06/09/20 21 06/10/2021 COMPR EHENS CECILIA METAB OLIC PANEL creatinine 0.74 mg/dL 0.50-1 .10 normal Not Available [address], [address], 06/10/2021 04:16:51 06/09/20 21 06/10/2021 COMPR EHENS CECILIA METAB OLIC PANEL eGFR non-afr. faroese 100 mL/mi n/1.7 3m2 > or = 60 normal Not Available [address], [address], 06/10/2021 04:16:51 06/09/20 21 06/10/2021 COMPR EHENS CECILIA METAB OLIC PANEL eGFR 116 mL/mi n/1.7 3m2 > or = 60 normal Not Available [address], [address], 06/10/2021 04:16:51 06/09/20 21 06/10/2021 COMPR EHENS CECILIA METAB OLIC PANEL BUN/creatini ne ratio not applic able (calc ) 6-22 Not Available [address], [address], 06/10/2021 04:16:51 06/09/20 21 06/10/2021 COMPR EHENS CECILIA METAB OLIC PANEL sodium 137 mmol/ L 135-14 6 normal Not Available [address], [address], 06/10/2021 04:16:51 06/09/20 21 06/10/2021 COMPR EHENS CECILIA METAB OLIC PANEL potassium 5.2 mmol/ L 3.5-5. 3 normal Not Available [address], [address], 06/10/2021 04:16:51 06/09/20 21 06/10/2021 COMPR EHENS CECILIA METAB OLIC PANEL chloride 102 mmol/ L 98-110 normal Not Available [address], [address], 06/10/2021 04:16:51 06/09/20 21 06/10/2021 COMPR EHENS CECILIA METAB OLIC PANEL carbon dioxide 29 mmol/ L 20-32 normal Not Available [address], [address], 06/10/2021 04:16:51 06/09/20 21 06/10/2021 COMPR EHENS CECILIA METAB OLIC PANEL calcium 9.5 mg/dL 8.6-10 .2 normal Not Available [address], [address], 06/10/2021 04:16:51 06/09/20 21 06/10/2021 COMPR EHENS CECILIA METAB OLIC PANEL protein, total 7.1 g/dL 6.1-8. 1 normal Not Available [address] [address] [place], [address], 06/10/2021 04:16:51 06/09/20 21 06/10/2021 COMPR EHENS CECILIA METAB OLIC PANEL albumin 4.5 g/dL 3.6-5. 1 normal Not Available [address], [address], 06/10/2021 04:16:51 06/09/20 21 06/10/2021 COMPR EHENS CECILIA METAB OLIC PANEL globulin 2.6 g/dL_ (calc ) 1.9-3. 7 normal Not Available [address], [address], 06/10/2021 04:16:51 06/09/20 21 06/10/2021 COMPR EHENS CECILIA METAB OLIC PANEL albumin/glob ulin ratio 1.7 (calc ) 1.0-2. 5 normal Not Available [address] [address] [place], [address], 06/10/2021 04:16:51 06/09/20 21 06/10/2021 COMPR EHENS CECILIA METAB OLIC PANEL bilirubin, total 0.5 mg/dL 0.2-1. 2 normal Not Available [address], [address], 06/10/2021 04:16:51 06/09/20 21 06/10/2021 COMPR EHENS CECILIA METAB OLIC PANEL alkaline phosphatase 50 U/L 31-125 normal Not Available [facility] [address] [address] [place], [address], 06/10/2021 04:16:51 06/09/20 21 06/10/2021 LIPID PANEL WITH RATIO S cholesterol, total 179 mg/dL <200 normal Not Available [address], [address], 06/10/2021 04:16:51 06/09/20 21 06/10/2021 LIPID PANEL WITH RATIO S HDL cholesterol 64 mg/dL > or = 50 normal Not Available [facility] [address] [place] [address], [address], 06/10/2021 04:16:51 06/09/20 21 06/10/2021 LIPID PANEL WITH RATIO S triglyceride s 70 mg/dL <150 normal Not Available [facility] [address], [address], 06/10/2021 04:16:51 06/09/20 21 06/10/2021 LIPID PANEL WITH RATIO S LDL-choleste rol 99 mg/dL _(ann c) normal Refer ence range : <100 Jess able range <100 mg/dL for prima ry preve ntion ; <70 mg/dL for patie nts with CHD or diabe tic patie nts with > or = 2 CHD risk facto rs. LDL-C is now calcu lated using the Amanda n-Hop kins calcu latvalentín n, which is a valid ated novel berlino d oswald morris accur acy than the Fried betsy equat ion in the estim ation of LDL-C . Amanda mojica SS et al. CELESTE. 2013; 310(1 9): 2061- 2068 (http ://ed ucati on.Qu Marco [employer]. com/f aq/FA Q164) Not Available [facility] [address], [address], 06/10/2021 04:16:51 06/09/20 21 06/10/2021 LIPID PANEL WITH RATIO S chol/HDLC ratio 2.8 (calc ) <5.0 normal Not Available [facility] [id number] [place] [address], [address], 06/10/2021 04:16:51 06/09/20 21 06/10/2021 LIPID PANEL WITH RATIO S LDL/HDL ratio 1.5 (calc ) Below avera ge Risk: <2.34 [place] ge Risk: 2.35- 4.12 Moder ate Risk: 4.13- 5.56 High Risk: >5.57 Not Available [address] [address] [place], [address], 06/10/2021 04:16:51 06/09/20 21 06/10/2021 LIPID PANEL WITH RATIO S non HDL cholesterol 115 mg/dL _(ann c) <130 normal For patie nts with diabe jessika plus 1 major ASCVD risk facto r, treat ing to a non-H DL-C goal of <100 mg/dL (LDL- C of <70 mg/dL ) is consi karined a thera peuti c optio n. Not Available [address] [address] [place], [address], 06/10/2021 04:16:51 06/09/20 21 06/10/2021 TSH+F REE T4 TSH 1.18 mIU/L normal Refer ence Range > or = 20 Years 0.40- 4.50 Pregn alejandro Range s First trime ster 0.26- 2.66 Secon d trime ster 0.55- 2.73 Third trime ster 0.43- 2.91 Not Available [address] [address] [place], [address], 06/10/2021 04:16:46 06/09/20 21 06/10/2021 TSH+F REE T4 T4, free 1.0 NG/dL 0.8-1. 8 normal Not Available [address] [address] [place], [address], 06/10/2021 04:16:46 11/04/19 22 11/07/2021 IGP, APTIM A HPV HPV aptima negati ve negati ve This nucle ic acid ampli ficat ion test detec ts fourt een high- risk HPV types (16,1 8,31, 33,35 ,39,4 5,51, 52,56 ,58,5 9,66, 68) witho ut diffe renti ation . Not Available [facility] ([facility]) [address] [facility], [place], [address], 11/09/2021 16:13:43 11/04/19 22 11/09/2021 IGP, APTIM A HPV diagnosis: edmundo olvia NEGAT CECILIA FOR INTRA EPITH ELIAL LESIO N OR MALIG ABBEY . REACT CECILIA CELLU LAR TIAN ES AND/O R REPAI R ARE PRESE NT. Not Available [facility] ([facility]) [address] [place], [address], 11/09/2021 16:13:43 11/04/19 22 11/09/2021 IGP, APTIM A HPV specimen adequacy: edmundo oliva Satis facto ry for evalu ation . Endoc ervic al and/o r squam ous metap lasti c cells (endo cervi ann compo nent) are prese nt. Not Available [facility] ([facility]) [address] [place], [address], 11/09/2021 16:13:43 11/04/19 22 11/09/2021 IGP, APTIM A HPV clinician provided ICD10: edmundo oliva Z01.4 19 Not Available [facility] ([facility]) [address] [place], [address], 11/09/2021 16:13:43 11/04/19 22 11/09/2021 IGP, APTIM A HPV performed by: edmundo Barros r, Cytot echno logis t (ASCP ) Not Available [facility] ([facility]) [address] [place], [address], 11/09/2021 16:13:43 11/04/19 22 11/09/2021 IGP, APTIM A HPV electronical ly signed by: edmundo Bailey MD, Patho logis t Not Available [facility] ([facility]) [address] [place], [address], 11/09/2021 16:13:43 11/04/19 22 11/09/2021 IGP, APTIM A HPV . . Not Available [facility] ([facility]) [address] [facility], [place], [address], 11/09/2021 16:13:43 11/04/19 22 11/09/2021 IGP, APTIM A HPV note: commen t The Pap smear is a scree margareth test desig boom to aid in the detec tion of maksim ligna nt and malig nant condi tions of the uteri ne cervi x. It is not a diagn ostic proce dure and shoul d not be used as the sole means of detec ting cervi ann cance r. Both false -posi tive and false -nega tive repor ts do occur . Not Available [facility] ([facility]) [address] [facility], [place], [address], 11/09/2021 16:13:43 11/04/19 22 11/09/2021 IGP, APTIM A HPV test methodology: houstonen t This liqui d based ThinP rep(R ) pap test was scree boom with the use of an image guide barbara bone. Not Available [facility] ([facility]) [address] [facility], [place], [address], 11/09/2021 16:13:43 12/17/19 22 12/16/2021 MAMMO , scree margareth, digit al, bilat eral No observ ation record ed. [id number] [facility] [address], [place], [address], 09/06/2022 19:50:29 05/02/20 22 05/01/2022 XR, ribs, unila teral , w/ PA chest No observ ation record ed. [id number] [facility] [address], [place], [address], 09/06/2022 19:50:29 05/02/20 22 05/01/2022 XR, lumba r spine No observ ation record ed. MIGRATION. [id number] [facility] [address], [place], [address], 09/06/2022 19:50:29 05/02/20 22 05/01/2022 XR, hip, unila teral No observ ation record ed. MIGRATION. [facility] [address], [place], [address], 09/06/2022 19:50:29 06/05/20 22 06/03/2022 US, abdom en No observ ation record ed. MIGRATION. [facility] [address], [place], [address], 09/06/2022 19:50:29 06/14/20 22 06/13/2022 RF, upper gastr ointe alee l tract + small bowel , w/ contr ast PO No observ ation record ed. MIGRATION. [place] [address], [place], [address], 09/06/2022 19:50:29 09/29/19 23 09/28/2022 upper endos copy proce dure (EGD) (PROC ) No observ ation record ed. [email or web address] Not Available 2022 10:58:14 Result Notes None recorded. Problems Name Problem SNOMED Code Status Onset Date Resolution Date Notes Provider Name and Address Organization Details Recorded Time Costal margin chest pain 835916976 Active 2021 Not Available [facility] 3 19:49:40 Low back pain 027765324 Active 2021 Not Available [facility] 3 19:49:40 Pain of left hip joint 2949426986261 00 Active 2021 Not Available [facility] 3 19:49:40 Hiatal hernia with gastroesop hageal reflux 161911036 Active 2022 Not Available [facility] 3 19:49:40 Unintentio nal weight loss 074473413 Active 2022 Not Available [facility] 3 19:49:40 Anxiety 73144230 Active 2019 Not Available [facility] 3 19:49:40 Premenstru al dysphoric disorder 057500 Active 2021 Not Available [facility] 3 19:49:40 Epigastric pain 95060295 Active 2022 Not Available [facility] 3 19:49:41 Upper abdominal pain 37038314 Active 2021 Not Available [facility] 3 19:49:41 Gastroesop hageal reflux disease 986990826 Active 2022 ANAM Nguyen null, [employer] 3 11:18:51 Menstrual migraine 67207739 Active 2022 KADEN Matson [address] [facility], [facility] [address], [place], [address] , [employer] 3 10:01:14 Problem Notes None recorded. Procedures Surgical History Date Name Laterality Status Provider Name and Address Organization Details Recorded Time 07/09/19 12 Date of Last Colonoscopy completed Not Available [facility] 09/06/2022 19:49:00 07/09/18 98 Breast reduction completed Not Available [facility] 09/06/2022 19:49:01 Imaging Results Imaging Date Name Status LastModified by Organization Details LastModified Time 06/13/2022 RF, upper gastrointestinal tract + small bowel, w/ contrast PO completed [id number] [facility] [address], [place], [address], 09/06/2022 19:50:29 05/01/2022 XR, ribs, unilateral, w/ PA chest completed [id number] [facility] [address], [place], [address], 09/06/2022 19:50:29 05/01/2022 XR, lumbar spine completed [id number] [facility] [address], [place], [address], 09/06/2022 19:50:29 05/01/2022 XR, hip, unilateral completed MIGRATIO [id number] [facility] [address], [place], [address], 09/06/2022 19:50:29 06/03/2022 US, abdomen completed [id number] [facility] [address], [place], [address], 09/06/2022 19:50:29 12/16/2021 MAMMO, screening, digital, bilateral completed [id number] [facility] [address], [place], [address], 09/06/2022 19:50:29 09/28/2022 upper endoscopy procedure (EGD) (PROC) completed [email or web address] Information not available 09/29/2022 10:58:14 Procedure Notes None recorded. Medical Equipment None Reported. Allergies No known drug allergies Medications Name Sig Start Date Stop Date Status Note LastModified by Organization Details LastModified Time Carafate 1 gram tablet Take 1 tablet twice a day by oral route as directed . active Not Available Not Available No t Available sumatriptan 50 mg tablet take 1 tab at onset of migraine , may repeat in 1 hour. max 200mg/24 hours 2022 active Not Available Not Available Not Avai lable pantoprazole 40 mg tablet,delay ed release TAKE 1 TABLET BY MOUTH ONCE DAILY IN THE MORNING active Not Available Not Available No t Available omeprazole 20 mg capsule,turner yed release Take 1 capsule every day by oral route in the morning. 08/08 completed Not Available Not Available Not Available Prozac 10 mg capsule Take 1 capsule every day by oral route. 11/28 completed Not Available Not Available Not Available fluoxetine 20 mg capsule TAKE 1 CAPSULE BY MOUTH ONCE DAILY active Not Available Not Available No t Available escitalopram 10 mg tablet TAKE 1 TABLET BY MOUTH ONCE DAILY 05/01 completed Not Available Not Available Not Available escitalopram 5 mg tablet TAKE 1 TABLET BY MOUTH ONCE DAILY 02/28 completed Not Available Not Available Not Available Ubrelvy 100 mg tablet TAKE 1 TABLET BY MOUTH ONCE DAILY AT ONSET OF MIRGRAIN E. MAY REPEAT IN 2 HOURS IF NEEDED. DO NOT EXCEED 2 TABLETS IN 24 HOURS active Not Available Not Available No t Available Vitals Date Recorded Body mass index (BMI) Body height Oxygen saturation Oxygen saturation in Arterial blood by Pulse oximetry Heart rate Body temperature Body weight Systolic blood pressure Diastolic blood pressure Provider Name and Address Organization Details Last Updated DateTime 1 23.7 kg/m2 162.56 cm 98 % 98 % 76 /min 98.1 [degF] 12476.7 5 g 114 mm[Hg] 70 mm[Hg] Not Available [facility] 3 19:49:24 Date Recorded Body mass index (BMI) Body height Oxygen saturation Oxygen saturation in Arterial blood by Pulse oximetry Heart rate Respiratory rate Body temperature Body weight Systolic blood pressure Diastolic blood pressure Provider Name and Address Organization Details Last Updated DateTime 2 21.5 kg/m2 162.56 cm 98 % 98 % 83 /min 16 /min 98.1 [degF] 03485.4 8 g 120 mm[Hg] 80 mm[Hg] Not Available [facility] 3 19:49:24 Date Recorded Body mass index (BMI) Body height Oxygen saturation Oxygen saturation in Arterial blood by Pulse oximetry Heart rate Respiratory rate Body temperature Body weight Systolic blood pressure Diastolic blood pressure Provider Name and Address Organization Details Last Updated DateTime 2 22.8 kg/m2 162.56 cm 98 % 98 % 74 /min 16 /min 97.3 [degF] 71654.7 9 g 120 mm[Hg] 78 mm[Hg] Not Available [facility] 3 19:49:24 Date Recorded Body mass index (BMI) Body height Oxygen saturation Oxygen saturation in Arterial blood by Pulse oximetry Heart rate Body temperature Body weight Systolic blood pressure Diastolic blood pressure Provider Name and Address Organization Details Last Updated DateTime 3 23.2 kg/m2 162.56 cm 99 % 99 % 99 /min 97.6 [degF] 87897.9 7 g 118 mm[Hg] 76 mm[Hg] Not Available [facility] 19:49:24 Date Recorded Body height Body weight Body temperature Heart rate Oxygen saturation Oxygen saturation in Arterial blood by Pulse oximetry Systolic blood pressure Diastolic blood pressure Provider Name and Address Organization Details Last Updated DateTime 162.56 cm 20564.9 4 g 97.1 [degF] 79 /min 99 % 99 % 116 mm[Hg] 66 mm[Hg] Nicole Jarquin RN [employer] 09:30:48 Date Recorded Body mass index (BMI) Provider Name and Address Organization Details Last Updated DateTime 04/10/2023 19.4 kg/m2 KADNE Matson [address] [facility], [facility] [address], [place], [address], [employer] 04/10/2023 09:44:21 Social History Question Answer Notes LastModified by Organizat ion Details LastModified Time Tobacco Smoking Status Never Smoker Not Available [facility] 09/06/2022 19:48:55 Do You Have An Advance Directive? No [id number] Information not available 09/06/2022 What Is Your Level Of Alcohol Consumption? Occasional MIGRATION.517789 6875 Information not available 09/06/2022 If You Are , What Was Your Level Of Alcohol Consumption Prior To ? None MIGRATION.648870 6545 Information not available 09/06/2022 Do You Wear A Helmet When Biking? No MIGRATION.421813 2534 Information not available 09/06/2022 What Is Your Level Of Caffeine Consumption? Moderate MIGRATION.501365 7550 Information not available 09/06/2022 In The 14 Days Before Symptom Onset, Have You Had Close Contact With A Laboratory-confirm ed COVID-19 While That Case Was Ill? No MIGRATION.711561 7649 Information not available 09/06/2022 In The 14 Days Before Symptom Onset, Have You Had Close Contact With A Person Who Is Under Investigation For COVID-19 While That Person Was Ill? No MIGRATION.392883 9299 Information not available 09/06/2022 What Type Of Diet Are You Following? REGULAR MIGRATION.756715 8701 Information not available 09/06/2022 What Is The Highest Grade Or Level Of School You Have Completed Or The Highest Degree You Have Received? 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 No MIGRATION.410439 4449 Information not available 09/06/2022 What Is The Fluoride Status Of Your Home? Unknown MIGRATION.005201 7035 Information not available 09/06/2022 Are There Any Guns Present In Your Home? No MIGRATION.421739 3386 Information not available 09/06/2022 Do You Use Insect Repellent Routinely? Yes MIGRATION.302160 2507 Information not available 09/06/2022 Do You Have A Medical Power Of Screen Printing Machine Operator Helper? No MIGRATION.343555 7214 Information not available 09/06/2022 What Was The Date Of Your Most Recent Tobacco Screening? 04/04/2021 MIGRATION.491482 7278 Information not available 09/06/2022 Have You Ever Been Counseled For Unhealthy Alcohol Use? No MIGRATION.349686 3582 Information not available 09/06/2022 Do You Have Any Pets? No MIGRATION.778763 0799 Information not available 09/06/2022 What Is Your Relationship Status? MIGRATION.023210 7326 Information not available 09/06/2022 Do You Use Your Seat Belt Or Car Seat Routinely? Yes MIGRATION.565012 6239 Information not available 09/06/2022 Do You Have Smoke And Carbon Monoxide Detectors In Your Home? Yes MIGRATION.469983 5469 Information not available 09/06/2022 Are You Passively Exposed To Smoke? No MIGRATION.935409 3276 Information not available 09/06/2022 Are There Any Smokers In Your House? No MIGRATION.309825 7365 Information not available 09/06/2022 Do You Feel Stressed (tense, Restless, Nervous, Or Anxious, Or Unable To Sleep At Night)? CS4079-5 MIGRATION.330680 6720 Information not available 09/06/2022 Do You Use Any Illicit Or Recreational Drugs? No MIGRATION.625200 7900 Information not available 09/06/2022 Do You Use Sunscreen Routinely? Yes MIGRATION.272777 8197 Information not available 09/06/2022 Has Tobacco Cessation Counseling Been Provided? No MIGRATION.720319 7932 Information not available 09/06/2022 Have You Recently Traveled Abroad? No MIGRATION.418958 0447 Information not available 09/06/2022 Do You Have Any Dietary Restrictions? No MIGRATION.381102 0143 Information not available 09/06/2022 Do You Or Have You Ever Used Any Other Forms Of Tobacco Or Nicotine? No MIGRATION.355882 2886 Information not available 09/06/2022 Sex: Unknown Functional Status Question Answer Note LastModified by Organizat ion Details LastModified Time What is your exercise level? Moderate [id number] Information not available 09/06/2022 Mental Status None recorded. Family History Relationship Description Onset Age of this Age Resolved Age Notes LastModified by Organization Details LastModified Time Mother Diabetes mellitus [id number].[id number] Not available 09/06/2022 19:49:01 Mother Disease of liver MIGRATION.675 [id number] Not available 09/06/2022 19:49:01 Mother Cerebrovascu lar accident MIGRATION.477 [id number] Not available 09/06/2022 19:49:01 Father Hypertensive disorder MIGRATION.163 [id number] Not available 09/06/2022 19:49:01 Medical History Condition Response HEADACHES/MIGRAINES Y ANXIETY DISORDER Y Gynecological History Statement/Question Response Abnormal Pap Y Date of Last Mammogram 09/02/2020 Date of Last Colonoscopy 07/09/2011 Sexually Active? Y Menses Monthly Y Date of Last Pap 11/03/2021 Duration of Flow (days) 4 Current Control Method None Obstetrics History GPAL:G 2 P 0 0 0 2 Type Value Living 2 Total 2 Immunizations Vaccine Type Date Status Note Provider Nam e and Address Organization Details Recorded Time COVID-19, mRNA, LNP-S, PF, 30 mcg/0.3 mL dose 1 completed Not Available [facility] 09/06/2022 19:50:25 COVID-19, mRNA, LNP-S, PF, 30 mcg/0.3 mL dose 1 completed Not Available [facility] 09/06/2022 19:50:25 COVID-19, mRNA, LNP-S, PF, 100 mcg/0.5mL dose or 50 mcg/0.25mL dose 1 completed Not Available [facility] 09/06/2022 19:50:25 Influenza, split virus, quadrivalent, preservative 1 completed Not Available [facility] 09/06/2022 19:50:25 Influenza, split virus, quadrivalent, preservative 9 completed Not Available [facility] 09/06/2022 19:50:25 tetanus toxoid, unspecified formulation 1 completed Not Available [facility] 09/06/2022 19:50:25 Influenza, split virus, quadrivalent, PF 0 completed Not Available [facility] 09/06/2022 19:50:25 Influenza, split virus, quadrivalent, PF 8 completed Not Available [facility] 09/06/2022 19:50:25 influenza, unspecified formulation 3 completed VIELKA Villatoro, [employer] 05/01/2023 15:40:46 COVID-19, mRNA, LNP-S, PF, 100 mcg/0.5mL dose or 50 mcg/0.25mL dose 3 completed VIELKA Villatoro, [employer] 05/01/2023 15:41:37 Past Encounters Encounter ID Performer Location Encounter Start Date Encounter Closed Date Diagnosis/Indication Diagnosis SNOMED-CT Code Diagnosis ICD10 Code Diagnosis Note [id number] [facility] [place] [address] [place] [address] 04/04/2021 00:00:00 04/04/2021 20:58:30 [id number] [facility] [place] [address] [place] [address] 11/03/2021 00:00:00 11/03/2021 13:58:54 [id number] [facility] [place] [address] [place] [address] 05/01/2022 00:00:00 05/06/2022 14:47:59 [id number] [facility] [place] [address] [place] [address] 08/08/2022 00:00:00 08/08/2022 15:39:20 [id number] KADEN Matson [facility] [place] [address] [place] [address] 04/10/2023 09:21:01 04/10/2023 10:03:04 Adult health examination 923497437 Z00.01 annual wellness exam completed Gastroesop hageal reflux disease 284714099 K21.9 EGD completed. NERD and GE junction. localized gastritis. Premenstru al dysphoric disorder 069985 F32.81 stable and on 40mg during menses Cholesterol screening 27 8451833 Z13.220 fasting lipids due Diabetes m ellitus screening 535431662 Z13.1 screening diabetes ordered Long-term drug therapy 552869200 Z79.899 routine annual labs ordered. Screening mammography 24 003928 Z12.31 mammogram due Menstrual migraine 77760 000 G43.829 samples of ubrelvy 100mg for trial Health Concerns Section Related Observation LastModified by Organization Detai ls LastModified Time None Recorded Concern Status LastModified by Organization Details LastModified Time None Recorded Advance Directives Directive N: Payers Encounter Date Sequence Insurance Name Policy Number Policy Gamez Covered Member ID Gamez Member ID Guarantor Name 04/10/2023 1 [facility] [id number] [place] [id number] Christina Majano Notes Date Note Type Note Provider Name and Address Organization Details Recorded Time 04/04/2021 text/html Anxiety, General ized DisorderReported bypatient.Severity:mi ld Modifying Factors:other medications Associated Symptoms:excess anxietyNotes:stable on lexapro 10mg daily. Not Available [place] [facility] 04/04/2021 20:58:30 11/03/2021 text/html Pap/PelvicReport ed bypatient.Context:izzy t for screening pap/pelvic/breast exam; all the time she is having bloating and extra gas. Sometimes will have pressure lower in pelvis. Associated Factors:no risk factor for cervical cancer; no history of CATA II/III; at least three pap smears in past 7 years (last one was in 2019); low risk sexual history; no SUGEY exposure;prior abnormal pap smear;needs mammogram screening(she is scheduled to go in December) Not Available [employer] 11/03/2021 13:58:54 05/01/2022 text/html Anxiety/Depressi onRep orted bypatient.Quality:dep ends on the situation. Severity:denies suicidal ideations; able to maintain relationships; does not interfere with activities of daily living Duration:symptoms lasting over 2 weeks Onset/Timing:still present Context:no major life stressors Modifying Factors:medications as directed Associated Symptoms:denies homicidal ideations; no significant weight gain; no significant weight loss; no visual/auditory hallucinations; no delusions; no shortness of breath; mood good; no anxiety; no crying spells; no panic; no isolation; sleeping well; appetite good; energy good; no apathy; maintaining functionality Not Available [employer] 05/06/2022 14:47:59 08/08/2022 text/html Reflux/GERDRepor kirill bypatient.Symptomshea rtburn Quality:burning;stabb ing;pressure Severity:waking up at night;worsening Onset/Timing:daily; occurs at night/while sleeping Context:non-smoker; no drug/alcohol abuse; no drug alcohol withdrawal Alleviating Factors:nothing helps Associated Symptoms:belching/bur ping;nausea;heartburn ;bloating Not Available [employer] 08/08/2022 15:39:20 04/10/2023 text/html wellness KADEN Matson [address] [place] [address], [address], [employer] 05/07/2023 00:08:16 04/10/2023 text/html Anxiety/Depressi onRep orted bypatient.Severity:de nies suicidal ideations; able to maintain relationships; does not interfere with activities of daily living Context:no major life stressors Associated Symptoms:denies homicidal ideations; no significant weight gain; no significant weight loss; no visual/auditory hallucinations; no delusions; no shortness of breathReflux/GERDRepo rted bypatient.Severity:im proving Context:non-smoker; no drug/alcohol abuse; no drug alcohol withdrawal; not related to food/drink Associated Symptoms:no frequent coughing; no feeling of fullness/mass in throat; no hoarseness; no food getting stuck; no belching/burping; no vomiting; not vomiting blood; no regurgitation; no shortness of breath; no chest pain; no heartburn; no difficulty swallowing; no pain when swallowing; no bad taste; no decreased appetite; no weight loss; no black/tarry stools; no fatigue; no throat pain KADEN Matson [address] [facility], [facility] [address], [place], [address], [facility] 05/07/2023 00:08:16 OBGyn Episode No OBEpisode recorded.
--- OUTSIDE RECORDS SUMMARY | 2024-09-11 16:27 | XMS_ITS | Referral Summary ---
Author Organization [facility] [employer] Address [address] [facility] [place] [address] Care Team Providers Care Tire And Lube Technician Name Role Phone Pao Bolanos Primary Care Pr ovider Source Comments [facility],non-owned Affiliates and Associated Physician Practices is amultiple site organization consisting of ambulatory clinics and hospital sitesin [place], [place], [place] and [place]. This disclosure is being madepursuant to the Care Everywhere program and may not contain all information available regarding this patient. Last updated 18.[facility] [employer] Allergies No known active allergies Medications Be aware that medications may not be up to date on this document. Always verify current medications with the patient. No known medications Active Problems No known active problems Social History Tobacco Use Types Packs/Day Years [...] 02/04/2018 11:47 AM CDT Plan of Treatment Not on file Care Teams Tire And Lube Technician Relationship Specialty Start Date End Date Pao Bolanos PA [address] [place] [address] [place] [address] PCP - General 10/23/22
--- OUTSIDE RECORDS SUMMARY | 2024-09-11 16:27 | XMS_ITS | Patient Health Summary ---
Author Organization [facility] [employer] Address [address] [place] [address] Care Team Providers Care Automation Technologist Name Role Phone Pao Bolanos Primary Care Pr ovider Note from [facility],non-owned Affiliates and Associated Physician Practices is amultiple site organization consisting of ambulatory clinics and hospital sitesin [place], [place], [place] and [place]. This disclosure is being madepursuant to the Care Everywhere program and may not contain all information available regarding this patient. Last updated 18.[facility] [employer] Allergies No known active allergies Medications Be [...] Mass Index 21.46 02/04/2018 11:47 AM CDT Procedures * IMAGING/RADIOLOGY/XRAY RESULTS ORDER(Performed 01/07/2018) Results * IMAGING/RADIOLOGY/XRAY RESULTS ORDER (01/07/2018) Anatomical Region Laterality Modality Other Pao ALFONSO IMAGING Care Teams Automation Technologist Relationship Specialty Start Date End Date Pao Bolanos PA [address] [place] [address] [place] [id number] PCP - General 10/23/22
[2024-09-11 16:30] LABS: D Dimer < 0.27 ug/mL (<0.48)
== END 2024-09-11 15:12 | disposition home or self-care (01) ==
LOC: ANHLAB 15:13
PROVIDERS: PCP Physician Assistant; Visit Provider Physician Assistant
DX: R07.9 Chest pain, unspecified (principal); Z79.891 Long term (current) use of opiate analgesic
CPT/HCPCS: 36415; 80053; 83735; 85025; 85380

== ENCOUNTER 2024-10-16 06:48 | Outpatient (CLI) | payer OTHER, SELFPAY ==
--- NOTE | ~2024-10-16 | CT_ITS ---
Clinical Indication: Dyspnea CT Scan of the Chest with Contrast: Technique: Contiguous sections were acquired throughout the chest after intravenous administration of 100 cc of Omnipaque 350. Dose reduction technique was used on this scan by utilizing automated expos ure control and iterative reconstruction technique. The dose-length product (DLP) was 153.10 mGy-cm. Findings: There is no evidence of any significant mediastinal, hilar or axillary lymphadenopathy. There is no f illing defect in the pulmonary arterial tree to suggest pulmonary embolus. There is no evidence of ao rtic dissection or aneurysm. There is no evidence of pleural or pericardial effusion. The lungs are clear. No pulmonary nodules or infiltrates are noted. Images through the upper abdomen reveal small calcified gallstone. Impression: No evidence of pulmonary embolus, aortic dissection, or aortic aneurysm. Clear lungs. Reviewed, dictated and finalized at [facility]. Impression: No evidence of pulmonary embolus, aortic dissection, or aortic aneurysm. Clear lungs.
--- OUTSIDE RECORDS SUMMARY | 2024-10-16 06:51 | XMS_ITS | Clinical Summary ---
Author Organization [facility] Address [address] [place] [address] Care Team Providers Care Press Shop Supervisor Name Role Phone Pao Bolanos Primary Care Pr ovider Source Comments [facility],non-owned Affiliates and Associated Physician Practices is amultiple site organization consisting of ambulatory clinics and hospital sitesin [place], [place], [place] and [place]. This disclosure is being madepursuant to the Care Everywhere program and may not contain all information available regarding this patient. Last updated 18.[email or web address] [facility] Allergies No known active allergies Medications Be [...] VACCINE (1 - 2023-2 5 season) 2024 DEPRESSION SCREENING 07/09/2024 INFLUENZA VACCINE (Season Ended) 2025 ZOSTER VACCINE (1 of 2) 2029 HIB VACCINE Aged Out No longer eligi ble based on patient's age to complete this topic HPV VACCINE Aged Out No longer eligi ble based on patient's age to complete this topic MENINGOCOCCAL (Group B) VACC INE SHARED DECISION-MAKING Aged Out No longer eligibl e based on patient's age to complete this topic MENINGOCOCCAL GROUPS A/C/Y/W VACCINE Aged Out No longer eligible b ased on patient's age to complete this topic PNEUMOCOCCAL VACCINE Aged Out No long er eligible based on patient's age to complete this topic Care Teams Press Shop Supervisor Relationship Specialty Start Date End Date Pao Bolanos PA [address] [place] [address] [place] [id number] PCP - General 10/23/22
--- OUTSIDE RECORDS SUMMARY | 2024-10-16 06:51 | XMS_ITS | Data Portability ---
Author Organization [facility] ASHERValeriano Tunde Address [address] [facility] [place] [address] Care Team Providers Care Consumer Lending Manager Name Role Phone SILVINAANGIE SANCHEZ Primary Care Provider Unavailab le Assessment No assessment recorded. Plan of Treatment Reminders Order Date Submit Date Provider Last Modified By Organization Details Last Modified Time Details Appointments None recorde d. Lab CBC w/ auto diff 2024 025 [facility] (Lab), [address] [place] [address], [id number], 5 00:09:31 CMP, serum or plasma 2024 025 [facility] (Lab), [address] [place] [address], [id number], 5 00:09:30 magnesi um, serum or plasma [address] (Lab), [address] [place] [address], [id number], 5 11:28:33 D-dimer , quant, plasma 2024 025 [facility] (Lab), [address] [place] [address], [id number], 5 00:09:30 TSH + free T4, serum 2023 024 [place] [facility], [facility] [address], [place], [address], 4 09:33:58 lipid panel, serum 2023 024 [facility], [address], [address], [place], [address], 4 09:33:58 CMP, serum or plasma 2023 024 [facility], [address], [address], [place], [address], 4 12:07:33 CBC w/ auto diff 2023 024 [facility], [address], [address], [place], [address], 4 12:08:04 HbA1c (hemogl obin A1c), blood 2023 024 [facility], [address], [address], [place], [address], 4 12:07:54 Referral None recorde d. Procedures None recorde d. Surgeries None recorde d. Imaging electro cardiog lexus 2024 025 [email or web address] In-Office Order, Internal Use Only DO Not Attach Compendium DO Not Attach Compendium, Do Not Delete/merge, [id number] 5 17:25:25 exercis e stress test [address] (Cardiology [facility]), [address] [facility] [address], [place], [address], 5 16:54:13 US, echocar diogram , transth oracic, complet e, w/ color flow [address] ([facility]iology [facility]), [address] [facility] [address], [place], [address], 5 14:40:51 CT, angiogr am, chest, w/ contras t 2024 025 [facility] (Imaging), [address] [place] [address], [id number], 5 04:09:06 Medication Orders Prozac 10 mg capsule 2023 024 [facility] [address] [place], [address], 4 13:38:22 Patient TargetsNo targets recorded. Patient InstructionsNo instructions recorded. Reason for Referral None Reported. Results Created Date Observation Date Name Description Value Unit Range Abnormal Flag Note LastModifiedBy Organization Detail LastModifiedTime 09/12/19 25 elect rocar diogr am No observ ation record ed. ABHISHEK In-Office Order Internal Use Only DO Not Attach Compendium DO Not Attach Compendium, Do Not Delete/merge, [id number] 09/11/2024 15:37:50 09/12/19 25 09/11/2024 elect rocar diogr am No observ ation record ed. ABHISHEK In-Office Order Internal Use Only DO Not Attach Compendium DO Not Attach Compendium, Do Not Delete/merge, [id number] 09/11/2024 15:45:31 Result Notes None recorded. Problems Name Problem SNOMED Code Status Onset Date Resolution Date Notes Provider Name and Address Organization Details Recorded Time Premenstrua l dysphoric disorder 824220 Active 2023 KADEN Matson Attn: Maggy kolb,[address] [facility], [place], [address] [place] [address] - [place] 4 09:57:34 Body mass index 20-24 - normal 252424722 Active 2024 Claire sen, [place] - [place] 5 15:07:38 Positive screening for depression on PHQ-9 (Patient Health Questionnai re 9) 9669209763396 00 Active 2024 KADEN Matson Attn: Maggy kolb,[address] [facility], [place], [address], [place] - [facility] 17:43:01 Long-term drug therapy Active 2024 KADEN Matson Attn: Maggy kolb,[address] [facility], [place], [address], [place] - [facility] 5 17:43:08 Feeling stressed 911981416 Active 2024 KADEN Matson Attn: Maggy kolb,[address] [facility], [place], [address], [place] - [facility] 5 17:44:06 Anxiety 44580389 Active 2024 KADEN Matson Attn: Maggy kolb,[address] [facility], [place], [address], [place] - [facility] 17:44:07 Problem Notes None recorded. Procedures Surgical History Date Name Laterality Status Provider Name and Address Organization Details Recorded Time section completed Jack Quinonez [place] - [place] 05/08/2024 09:50:28 LEEP completed Jack Quinonez [place] - [place] 05/08/2024 11:33:54 Imaging Results Imaging Date Name Status LastModified by Organization Details LastModified Time 09/11/2024 electrocardiogram completed ABHISHEK In-Offi ce Order Internal Use Only DO Not Attach Compendium DO Not Attach Compendium, Do Not Delete/merge, [id number] 09/11/2024 15:37:50 09/11/2024 electrocardiogram completed ABHISHEK In-Offi ce Order Internal Use Only DO Not Attach Compendium DO Not Attach Compendium, Do Not Delete/merge, [id number] 09/11/2024 15:45:31 Procedure Notes None recorded. Medical [...] transling ual route as needed, for anxiety betito harishh. 2023 active Not Available Not Available Not Avai lable Vitals Date Recorded Body weight Respiratory rate Body mass index (BMI) Body height Oxygen saturation Oxygen saturation in Arterial blood by Pulse oximetry Heart rate Systolic blood pressure Diastolic blood pressure Provider Name and Address Organization Details Last Updated DateTime 4 75048.6 4 g 18 /min 21.6 kg/m2 162.56 cm 100 % 100 % 77 /min 118 mm[Hg] 82 mm[Hg] Jack Quinonez MA [facility] 4 09:52:46 Date Recorded Body height Body mass index (BMI) Body weight Respiratory rate Oxygen saturation Oxygen saturation in Arterial blood by Pulse oximetry Heart rate Systolic blood pressure Diastolic blood pressure Provider Name and Address Organization Details Last Updated DateTime 5 162.56 cm 20.1 kg/m2 77904.0 3 g 16 /min 98 % 98 % 100 /min 140 mm[Hg] 90 mm[Hg] Claire Gilbert [facility] 5 15:04:25 Social History Question Answer Notes LastModified by [employer] ion Details LastModified Time Tobacco Smoking Status Never Smoker Jack Quinonez MA null, [facility] 05/08/2024 09:51:06 Do You Have An Advance [...] Response Coronary Artery Disease N Other N High Blood Pressure N Atrial Fibrillation N Kidney or Bladder Problems N Thyroid Problems N GI Problems N Depression N COPD N Blood Clots N Have you had a mammogram in the last yea r? N Skin Problems N Anemia N Heart Attack ([place]) N Anxiety Disorder Y Diabetes N Muscle, Joint, or Bone Problems N Seizures/Epilepsy N Have you had a colonoscopy in the last 1 0 years? N Acid Reflux (GERD) Y Cancer N Stroke N Asthma N Allergies N Have you had a PSA blood test in the las t year? N High Cholesterol N Hepatitis N Liver Disease N Headaches N Heart Failure N Osteoporosis N Gynecological [...] PF, 30 mcg/0.3 mL dose 09/02/2020 completed Jack Quinonez [place] null, [place] [facility] 05/08/2024 09:50:52 COVID-19, mRNA, LNP-S, PF, 30 mcg/0.3 mL dose 09/23/2020 completed Jack Quinonez [place], [place] [facility] 05/08/2024 09:50:52 COVID-19, mRNA, LNP-S, bivalent, PF, 30 mcg/0.3 mL dose 05/03/2022 lashonda Quinonez [place], [place] [facility] 05/08/2024 09:50:52 COVID-19, mRNA, [...] SNOMED-CT Code Diagnosis ICD10 Code Diagnosis Note [id number] KADEN Matson [facility] [employer] [address] [place] [address] 05/08/2024 09:35:59 05/08/2024 10:32:10 Adult health examination 642336042 Z00.00 Annual wellness exam completed. Fasting labs ordered Cholesterol screening 27 8121046 Z13.220 Diabetes m ellitus screening 956323914 Z13.1 Long-term drug therapy 054892549 Z79.891 Thyroid di sorder screening 680008658 Z13.29 Premenstru al dysphoric disorder 461544 F32.81 Refill on Prozac 10 mg daily. Very stable on therapy [id number] [facility] [employer] [address] [place] [address] 09/11/2024 14:45:07 09/11/2024 16:11:07 Body mass index 20-24 - normal 762932145 Z68.20 BMI is 20.1 Positive s creening for depression on PHQ-9 (Patient Health Questionnaire 9) 8854015569 46393 Z13.31 patient scored a 9 on screening today which a lot of this is related to acute stressors, she is on Prozac which is keeping her relatively stable with no acute concerns or requests to change medicine. Patient also has clonazepam as needed for anxiety breakthrou gh Chest pain 77433509 R07. 9 EKG is stable and normal sinus rhythm with no acute findings in the office completed today. Refer for exercise stress testing and complete echocardio gram with Doppler send for CBC and CMP labs Dyspnea 510322696 R06.00 send for stat D-dimer and subsequent CT angiogram of the chest with contrast if D-dimer is elevated Long-term drug therapy 240817125 Z79.891 screening magnesium level requested Feeling stressed 6562287 06 Z73.3 discussed a lot of stress right now currently with a job situation and a lot of things on her plate that she is trying to manage. She feels like this is directly taking a toll on her and likely causing lot of her symptom presentati on today. We have discussed cutting back some saying no to some added task that have been placed on her. She does have medication on board Anxiety 37286332 F41.9 as above Health Concerns Section Related Observation LastModified by Organization Kristel silverio LastModified Time None Recorded Concern Status LastModified by Organization Details LastModified Time None Recorded Advance Directives Directive Y: Payers Encounter Date Sequence Insurance Name Policy Number Policy Gamez Covered Member ID Gamez Member ID Guarantor Name 05/08/2024 1 [facility] [email or web address] [facility] [id number] Christina Majano [id number] Christina Majano 09/11/2024 1 [facility] [email or web address] [facility] [id number] Christina Majano [id number] Christina Majano Notes Date Note Type Note Provider Name and Address Organization Details Recorded Time 05/08/2024 text/html Patient is stabl e on Prozac 10 mg daily for management of underlying premenstrual mood dysphoric disorder. She has no complaints. She would like to have updated labs. KADEN Matson Attn: Accounting,[address] [facility], [place], [address], [facility] 05/08/2024 16:40:39 09/11/2024 text/html Angina/Chest PainReported bypatient.Location :right chest; back; epigastrium;radiat es to the back Onset/Timing:start ed days ago; started 4weeks ago Context:doesnt matter but when she works our her heart rate increases. Aggravating Factors:nothing makes it worse Associated Symptoms:shortness of breath;dizziness KADEN Matson Attn: [address] [place], [address], [facility] 10/05/2024 17:45:06 OBGyn Episode No OBEpisode recorded.
--- OUTSIDE RECORDS SUMMARY | 2024-10-16 06:51 | XMS_ITS | Data Portability ---
Author Organization [place] [facility], Main Office Address [address] [place] [address] Assessment No assessment recorded. Plan of Treatment Reminders Order Date Submit Date Provider Last Modified By Organization Details Last Modified Time Details Appointments None recorded. Lab CMP, serum or plasma 2022 023 [facility], [address], [place], [address], 4 10:11:15 CBC w/ auto diff 2022 023 [facility], [address], [place], [address], 4 10:11:15 TSH + free T4, serum 2022 023 [facility]ia [facility], [address], [place], [address], 4 10:11:15 lipid panel, serum 2022 023 [facility], [address], [place], [address], 4 10:11:14 HbA1c (hemoglobi n A1c), blood 2022 023 [facility], [address], [place], [address], 4 10:11:14 Referral None recorded. Procedures None [...] NO CULTU RE INDIC ATED Not Available [address], [address], 06/10/2021 04:16:54 06/09/2006/10/2021 URINA LYSIS , COMPL ETE W/REF RENE TO CULTU RE color yellow yellow normal Not Available [address], [address], 06/10/2021 04:16:53 06/09/2006/10/2021 URINA LYSIS , COMPL ETE W/REF RENE TO CULTU RE appearance clear clear normal Not Available [address], [address], 06/10/2021 04:16:53 06/09/2006/10/2021 URINA LYSIS , COMPL ETE W/REF RENE TO CULTU RE specific gravity 1.010 1.001- 1.035 normal Not Available [address], [address], 06/10/2021 04:16:53 06/09/2006/10/2021 URINA LYSIS , COMPL ETE W/REF RENE TO CULTU RE pH 6.0 5.0-8. 0 normal Not Available [address], [address], 06/10/2021 04:16:53 06/09/20 21 06/10/2021 URINA LYSIS , COMPL ETE W/REF RENE TO CULTU RE glucose negati ve negati ve normal Not Available [address], [place], [address], 06/10/2021 04:16:53 06/09/20 21 06/10/2021 URINA LYSIS , COMPL ETE W/REF RENE TO CULTU RE bilirubin negati ve negati ve normal Not Available [facility] [address] [address] [place], [address], 06/10/2021 04:16:53 06/09/20 21 06/10/2021 URINA LYSIS , COMPL ETE W/REF RENE TO CULTU RE ketones negati ve negati ve normal Not Available [facility] [address] [address] [place], [address], 06/10/2021 04:16:53 06/09/20 21 06/10/2021 URINA LYSIS , COMPL ETE W/REF RENE TO CULTU RE occult blood negati ve negati ve normal Not Available [facility] [address], [place], [address], 06/10/2021 04:16:53 06/09/20 21 06/10/2021 URINA LYSIS , COMPL ETE W/REF RENE TO CULTU RE protein negati ve negati ve normal Not Available [facility] [address] [address] [place], [address], 06/10/2021 04:16:53 06/09/20 21 06/10/2021 URINA LYSIS , COMPL ETE W/REF RENE TO CULTU RE nitrite negati ve negati ve normal Not Available [facility] [address] [place], [address], 06/10/2021 04:16:53 06/09/20 21 06/10/2021 URINA LYSIS , COMPL ETE W/REF RENE TO CULTU RE leukocyte esterase negati ve negati ve normal Not Available [facility] [address] [place], [address], 06/10/2021 04:16:53 06/09/20 21 06/10/2021 URINA LYSIS , COMPL ETE W/REF RENE TO CULTU RE WBC none seen /hpf < or = 5 normal Not Available [address], [address], 06/10/2021 04:16:53 06/09/20 21 06/10/2021 URINA LYSIS , COMPL ETE W/REF RENE TO CULTU RE RBC none seen /hpf < or = 2 normal Not Available [address], [address], 06/10/2021 04:16:53 06/09/20 21 06/10/2021 URINA LYSIS , COMPL ETE W/REF RENE TO CULTU RE squamous epithelial cells 0-5 /hpf < or = 5 Not Available [address], [address], 06/10/2021 04:16:53 06/09/20 21 06/10/2021 URINA LYSIS , COMPL ETE W/REF RENE TO CULTU RE bacteria few /hpf none seen abnormal Not Available [address], [address], 06/10/2021 04:16:53 06/09/20 21 06/10/2021 URINA LYSIS , COMPL ETE W/REF RENE TO CULTU RE hyaline cast none seen /lpf none seen normal Not Available [address], [address], 06/10/2021 04:16:53 06/09/20 21 06/10/2021 CBC (INCL UDES DIFF/ PLT) white blood cell count 5.7 thous and/u L 3.8-10 .8 normal Not Available [address], [address], 06/10/2021 04:16:52 06/09/20 21 06/10/2021 CBC (INCL UDES DIFF/ PLT) red blood cell count 4.84 andi on/uL 3.80-5 .10 normal Not Available [address], [address], 06/10/2021 04:16:52 06/09/20 21 06/10/2021 CBC (INCL UDES DIFF/ PLT) hemoglobin 14.3 g/dL 11.7-1 5.5 normal Not Available [address], [address], 06/10/2021 04:16:52 06/09/20 21 06/10/2021 CBC (INCL UDES DIFF/ PLT) hematocrit 44.5 % 35.0-4 5.0 normal Not Available [address], [address], 06/10/2021 04:16:52 06/09/2006/10/2021 CBC (INCL UDES DIFF/ PLT) MCV 91.9 fL 80.0-1 00.0 normal Not Available [address], [address], 06/10/2021 04:16:52 06/09/2006/10/2021 CBC (INCL UDES DIFF/ PLT) MCH 29.5 pg 27.0-3 3.0 normal Not Available [address], [address], 06/10/2021 04:16:52 06/09/2006/10/2021 CBC (INCL UDES DIFF/ PLT) MCHC 32.1 g/dL 32.0-3 6.0 normal Not Available [address], [address], 06/10/2021 04:16:52 06/09/2006/10/2021 CBC (INCL UDES DIFF/ PLT) RDW 12.1 % 11.0-1 5.0 normal Not Available [facility] [address], [address], 06/10/2021 04:16:52 06/09/20 21 06/10/2021 CBC (INCL UDES DIFF/ PLT) platelet count 332 thous and/u L 140-40 0 normal Not Available [address], [address], 06/10/2021 04:16:52 06/09/20 21 06/10/2021 CBC (INCL UDES DIFF/ PLT) MPV 9.2 fL 7.5-12 .5 normal Not Available [address], [address], 06/10/2021 04:16:52 06/09/20 21 06/10/2021 CBC (INCL UDES DIFF/ PLT) absolute neutrophils 3471 cells /uL 1500-7 800 normal Not Available [address], [address], 06/10/2021 04:16:52 06/09/20 21 06/10/2021 CBC (INCL UDES DIFF/ PLT) absolute lymphocytes 1744 cells /uL 850-39 00 normal Not Available [address], [address], 06/10/2021 04:16:52 06/09/20 21 06/10/2021 CBC (INCL UDES DIFF/ PLT) absolute monocytes 353 cells /uL 200-95 0 normal Not Available [address], [address], 06/10/2021 04:16:52 06/09/20 21 06/10/2021 CBC (INCL UDES DIFF/ PLT) absolute eosinophils 91 cells /uL 15-500 normal Not Available [address], [address], 06/10/2021 04:16:52 06/09/20 21 06/10/2021 CBC (INCL UDES DIFF/ PLT) absolute basophils 40 cells /uL 0-200 normal Not Available [address], [address], 06/10/2021 04:16:52 06/09/20 21 06/10/2021 CBC (INCL UDES DIFF/ PLT) neutrophils 60.9 % normal Not Available [facility] [address], [address], 06/10/2021 04:16:52 06/09/20 21 06/10/2021 CBC (INCL UDES DIFF/ PLT) lymphocytes 30.6 % normal Not Available [facility] [address], [address], 06/10/2021 04:16:52 06/09/20 21 06/10/2021 CBC (INCL UDES DIFF/ PLT) monocytes 6.2 % normal Not Available [address], [address], 06/10/2021 04:16:52 06/09/20 21 06/10/2021 CBC (INCL UDES DIFF/ PLT) eosinophils 1.6 % normal Not Available [address], [address], 06/10/2021 04:16:52 06/09/20 21 06/10/2021 CBC (INCL UDES DIFF/ PLT) basophils 0.7 % normal Not Available [address], [address], 06/10/2021 04:16:52 06/09/20 21 06/10/2021 HEMOG LOBIN A1C hemoglobin A1C 5.0 %_of_ total _HGB <5.7 normal Not Available [address], [address], 06/10/2021 04:16:52 06/09/20 21 06/10/2021 COMPR EHENS CECILIA METAB OLIC PANEL AST 14 U/L 10-30 normal Not Available [facility] [address], [place], [address], 06/10/2021 04:16:51 06/09/20 21 06/10/2021 COMPR EHENS CECILIA METAB OLIC PANEL ALT 11 U/L 6-29 normal Not Available [address], [address], 06/10/2021 04:16:51 06/09/20 21 06/10/2021 COMPR EHENS CECILIA METAB OLIC PANEL glucose 79 mg/dL 65-99 normal Fasti ng refer ence inter suman Not Available [address], [address], 06/10/2021 04:16:51 06/09/20 21 06/10/2021 COMPR EHENS CECILIA METAB OLIC PANEL urea nitrogen (BUN) 14 mg/dL 7-25 normal Not Available [address], [address], 06/10/2021 04:16:51 06/09/20 21 06/10/2021 COMPR EHENS CECILIA METAB OLIC PANEL creatinine 0.74 mg/dL 0.50-1 .10 normal Not Available [address], [address], 06/10/2021 04:16:51 06/09/20 21 06/10/2021 COMPR EHENS CECILIA METAB OLIC PANEL eGFR non-afr. croatian 100 mL/mi n/1.7 3m2 > or = 60 normal Not Available [address], [address], 06/10/2021 04:16:51 06/09/20 21 06/10/2021 COMPR EHENS CECILIA METAB OLIC PANEL eGFR 116 mL/mi n/1.7 3m2 > or = 60 normal Not Available [address], [address], 06/10/2021 04:16:51 06/09/20 21 06/10/2021 COMPR EHENS CECILIA METAB OLIC PANEL BUN/creatini ne ratio not applic able (calc ) 6-22 Not Available [address], [address], 06/10/2021 04:16:51 06/09/20 21 06/10/2021 COMPR EHENS CECILIA METAB OLIC PANEL sodium 137 mmol/ L 135-14 6 normal Not Available [address], [address], 06/10/2021 04:16:51 06/09/20 21 06/10/2021 COMPR EHENS CECILIA METAB OLIC PANEL potassium 5.2 mmol/ L 3.5-5. 3 normal Not Available [address], [address], 06/10/2021 04:16:51 06/09/20 21 06/10/2021 COMPR EHENS CECILIA METAB OLIC PANEL chloride 102 mmol/ L 98-110 normal Not Available [address], [address], 06/10/2021 04:16:51 06/09/20 21 06/10/2021 COMPR EHENS CECILIA METAB OLIC PANEL carbon dioxide 29 mmol/ L 20-32 normal Not Available [address], [address], 06/10/2021 04:16:51 06/09/20 21 06/10/2021 COMPR EHENS CECILIA METAB OLIC PANEL calcium 9.5 mg/dL 8.6-10 .2 normal Not Available [address], [address], 06/10/2021 04:16:51 06/09/20 21 06/10/2021 COMPR EHENS CECILIA METAB OLIC PANEL protein, total 7.1 g/dL 6.1-8. 1 normal Not Available [place] [address] [place], [address], 06/10/2021 04:16:51 06/09/20 21 06/10/2021 COMPR EHENS CECILIA METAB OLIC PANEL albumin 4.5 g/dL 3.6-5. 1 normal Not Available [address], [address], 06/10/2021 04:16:51 06/09/20 21 06/10/2021 COMPR EHENS CECILIA METAB OLIC PANEL globulin 2.6 g/dL_ (calc ) 1.9-3. 7 normal Not Available [address], [address], 06/10/2021 04:16:51 06/09/20 21 06/10/2021 COMPR EHENS CECILIA METAB OLIC PANEL albumin/glob ulin ratio 1.7 (calc ) 1.0-2. 5 normal Not Available [address] [address] [place], [address], 06/10/2021 04:16:51 06/09/20 21 06/10/2021 COMPR EHENS CECILIA METAB OLIC PANEL bilirubin, total 0.5 mg/dL 0.2-1. 2 normal Not Available [address], [address], 06/10/2021 04:16:51 06/09/20 21 06/10/2021 COMPR EHENS CECILIA METAB OLIC PANEL alkaline phosphatase 50 U/L 31-125 normal Not Available [facility] [address] [address] [place], [address], 06/10/2021 04:16:51 06/09/20 21 06/10/2021 LIPID PANEL WITH RATIO S cholesterol, total 179 mg/dL <200 normal Not Available [address], [address], 06/10/2021 04:16:51 06/09/20 21 06/10/2021 LIPID PANEL WITH RATIO S HDL cholesterol 64 mg/dL > or = 50 normal Not Available [facility] [id number] [place] [address], [address], 06/10/2021 04:16:51 06/09/20 21 06/10/2021 LIPID PANEL WITH RATIO S triglyceride s 70 mg/dL <150 normal Not Available [facility] [address], [address], 06/10/2021 04:16:51 06/09/20 21 06/10/2021 LIPID PANEL [...] 2061- 2068 (http ://ed ucati on.Qu Marco hhgregg. com/f aq/FA Q164) Not Available [facility] [address], [address], 06/10/2021 04:16:51 06/09/20 21 06/10/2021 LIPID PANEL WITH RATIO S chol/HDLC ratio 2.8 (calc ) <5.0 normal Not Available [facility] [address] [place] [address], [address], 06/10/2021 04:16:51 06/09/20 21 06/10/2021 LIPID PANEL WITH RATIO S LDL/HDL ratio 1.5 (calc ) Below avera ge Risk: <2.34 [place] ge Risk: 2.35- 4.12 Moder ate Risk: 4.13- 5.56 High Risk: >5.57 Not Available [address] [address] [place], [address], 06/10/2021 04:16:51 06/09/20 21 06/10/2021 LIPID PANEL WITH RATIO S non HDL cholesterol 115 mg/dL _(ann c) <130 normal For patie nts with diabe jessika plus 1 major ASCVD risk facto r, treat ing to a non-H DL-C goal of <100 mg/dL (LDL- C of <70 mg/dL ) is consi karined a thera peuti c optio n. Not Available [place] [address] [place], [address], 06/10/2021 04:16:51 06/09/20 21 06/10/2021 TSH+F REE T4 TSH 1.18 mIU/L normal Refer ence Range > or = 20 Years 0.40- 4.50 Pregn alejandro Range s First trime ster 0.26- 2.66 Secon d trime ster 0.55- 2.73 Third trime ster 0.43- 2.91 Not Available [address] [address] [place], [address], 06/10/2021 04:16:46 06/09/20 21 06/10/2021 TSH+F REE T4 T4, free 1.0 NG/dL 0.8-1. 8 normal Not Available [address] [address] [place], [address], 06/10/2021 04:16:46 11/04/19 22 11/07/2021 IGP, APTIM A HPV HPV aptima negati ve negati ve This nucle ic acid ampli ficat ion test detec ts fourt een high- risk HPV types (16,1 8,31, 33,35 ,39,4 5,51, 52,56 ,58,5 9,66, 68) witho ut diffe renti ation . Not Available [facility] ([facility]) [address], [place], [address], 11/09/2021 16:13:43 11/04/19 22 11/09/2021 IGP, APTIM A HPV diagnosis: edmundo oliva NEGAT CECILIA FOR INTRA EPITH ELIAL LESIO N OR MALIG ABBEY . REACT CECILIA CELLU LAR TIAN ES AND/O R REPAI R ARE PRESE NT. Not Available [facility] ([facility]) [address] [place], [address], 11/09/2021 16:13:43 11/04/19 22 11/09/2021 IGP, APTIM A HPV specimen adequacy: edmundo oliva Satis facto ry for evalu ation . Endoc ervic al and/o r squam ous metap lasti c cells (endo cervi ann compo nent) are prese nt. Not Available [facility] ([facility]) [address] [place], [address], 11/09/2021 16:13:43 11/04/19 22 11/09/2021 IGP, APTIM A HPV clinician provided ICD10: edmundo oliva Z01.4 19 Not Available [facility] ([facility]) [address] [place], [address], 11/09/2021 16:13:43 11/04/19 22 11/09/2021 IGP, APTIM A HPV performed by: edmundo Barros r, Cytot echno logis t (ASCP ) Not Available [facility] ([facility]) [address] [place], [address], 11/09/2021 16:13:43 11/04/19 22 11/09/2021 IGP, APTIM A HPV electronical ly signed by: edmundo Bailey MD, Patho logis t Not Available [facility] ([facility]) [address] [place], [address], 11/09/2021 16:13:43 11/04/19 22 11/09/2021 IGP, APTIM A HPV . . Not Available [facility] ([facility]) [address], [place], [address], 11/09/2021 16:13:43 11/04/19 22 11/09/2021 IGP, APTIM [...] ts do occur . Not Available [facility] ([facility]) [address], [place], [address], 11/09/2021 16:13:43 11/04/19 22 11/09/2021 IGP, APTIM A HPV test methodology: houstonen t This liqui d based ThinP rep(R ) pap test was scree boom with the use of an image guide barbara bone. Not Available [facility] ([facility]) [address], [place], [address], 11/09/2021 16:13:43 12/17/19 22 12/16/2021 MAMMO , scree margareth, digit al, bilat eral No observ ation record ed. [id number] [facility] [address], [place], [address], 09/06/2022 19:50:29 05/02/20 22 05/01/2022 XR, ribs, unila teral , w/ PA chest No observ ation record ed. [id number] [facility] [address], [place], [address], 09/06/2022 19:50:29 05/02/20 22 05/01/2022 XR, lumba r spine No observ ation record ed. MIGRATION. [id number] [facility] [address], [place], [address], 09/06/2022 19:50:29 05/02/20 22 05/01/2022 XR, hip, unila teral No observ ation record ed. MIGRATION. [facility] [address], [place], [address], 09/06/2022 19:50:29 06/05/20 22 06/03/2022 US, abdom en No observ ation record ed. MIGRATION. [facility] [address], [place], [address], 09/06/2022 19:50:29 06/14/20 22 06/13/2022 RF, upper gastr ointe alee l tract + small bowel , w/ contr ast PO No observ ation record ed. MIGRATION. [place] [address], [place], [address], 09/06/2022 19:50:29 09/29/19 23 09/28/2022 upper endos copy proce dure (EGD) (PROC ) No observ ation record ed. [email or web address] Not Available 2022 10:58:14 Result Notes None recorded. Problems Name Problem SNOMED Code Status Onset Date Resolution Date Notes Provider Name and Address Organization Details Recorded Time Costal margin chest pain 733215243 Active 2021 Not Available [facility] 3 19:49:40 Low back pain 076793311 Active 2021 Not Available [facility] 3 19:49:40 Pain of left hip joint 3825322583447 00 Active 2021 Not Available [facility] 3 19:49:40 Hiatal hernia with gastroesop hageal reflux 273920724 Active 2022 Not Available [facility] 3 19:49:40 Unintentio nal weight loss 029726236 Active 2022 Not Available [facility] 3 19:49:40 Anxiety 19166888 Active 2019 Not Available [facility] 3 19:49:40 Premenstru al dysphoric disorder 954038 Active 2021 Not Available [facility] 3 19:49:40 Epigastric pain 86085359 Active 2022 Not Available [facility] 3 19:49:41 Upper abdominal pain 64992475 Active 2021 Not Available [facility] 3 19:49:41 Gastroesop hageal reflux disease 745515291 Active 2022 ANAM Nguyen null, [facility] 3 11:18:51 Menstrual migraine 17124179 Active 2022 KADEN Matson [address] [facility], [facility] [address], [place], [address] , [employer] 3 10:01:14 Problem Notes None recorded. Procedures Surgical History Date Name Laterality Status Provider Name and Address Organization Details Recorded Time 07/09/19 12 Date of Last Colonoscopy completed Not Available [facility] 09/06/2022 19:49:00 07/09/18 98 Breast reduction completed Not Available [facility] 09/06/2022 19:49:01 Imaging Results Imaging Date Name Status LastModified by Organization Details LastModified Time 06/13/2022 RF, upper gastrointestinal tract + small bowel, w/ contrast PO completed [id number] [facility] [address], [place], [address], 09/06/2022 19:50:29 05/01/2022 XR, ribs, unilateral, w/ PA chest completed [id number] [facility] [address], [place], [address], 09/06/2022 19:50:29 05/01/2022 XR, lumbar spine completed [id number].[id number] [facility] [address], [place], [address], 09/06/2022 19:50:29 05/01/2022 XR, hip, unilateral completed MIGRATIO [id number] [facility] [address], [place], [address], 09/06/2022 19:50:29 06/03/2022 US, abdomen completed [id number] [facility] [address], [place], [address], 09/06/2022 19:50:29 12/16/2021 MAMMO, screening, digital, bilateral completed [id number] [facility] [address], [place], [address], 09/06/2022 19:50:29 09/28/2022 upper endoscopy procedure (EGD) [...] % 98 % 76 /min 98.1 [degF] 20592.7 5 g 114 mm[Hg] 70 mm[Hg] Not Available [facility] 3 19:49:24 Date Recorded Body mass index (BMI) Body height Oxygen saturation Oxygen saturation in Arterial blood by Pulse oximetry Heart rate Respiratory rate Body temperature Body weight Systolic blood pressure Diastolic blood pressure Provider Name and Address Organization Details Last Updated DateTime 2 21.5 kg/m2 162.56 cm 98 % 98 % 83 /min 16 /min 98.1 [degF] 95882.4 8 g 120 mm[Hg] 80 mm[Hg] Not Available [facility] 3 19:49:24 Date Recorded Body mass index (BMI) Body height Oxygen saturation Oxygen saturation in Arterial blood by Pulse oximetry Heart rate Respiratory rate Body temperature Body weight Systolic blood pressure Diastolic blood pressure Provider Name and Address Organization Details Last Updated DateTime 2 22.8 kg/m2 162.56 cm 98 % 98 % 74 /min 16 /min 97.3 [degF] 72417.7 9 g 120 mm[Hg] 78 mm[Hg] Not Available [facility] 3 19:49:24 Date Recorded Body mass index (BMI) Body height Oxygen saturation Oxygen saturation in Arterial blood by Pulse oximetry Heart rate Body temperature Body weight Systolic blood pressure Diastolic blood pressure Provider Name and Address Organization Details Last Updated DateTime 3 23.2 kg/m2 162.56 cm 99 % 99 % 99 /min 97.6 [degF] 05473.9 7 g 118 mm[Hg] 76 mm[Hg] Not Available [facility] 19:49:24 Date Recorded Body height Body weight Body temperature Heart rate Oxygen saturation Oxygen saturation in Arterial blood by Pulse oximetry Systolic blood pressure Diastolic blood pressure Provider Name and Address Organization Details Last Updated DateTime 162.56 cm 26746.9 4 g 97.1 [degF] 79 /min 99 % 99 % 116 mm[Hg] 66 mm[Hg] Nicole Jarquin RN [facility] 09:30:48 Date Recorded Body mass index (BMI) Provider Name and Address Organization Details Last Updated DateTime 04/10/2023 19.4 kg/m2 KADEN Matson [address] [facility], [facility] [address], [place], [address], [employer] 04/10/2023 09:44:21 Social History Question Answer Notes LastModified by Organizat ion Details LastModified Time Tobacco Smoking Status Never Smoker Not Available [facility] 09/06/2022 19:48:55 Do You Have An Advance Directive? No [id number] Information not available 09/06/2022 What Is Your Level Of Alcohol Consumption? Occasional [id number] Information not available 09/06/2022 If You Are , What Was Your Level Of Alcohol Consumption Prior To ? None [id number] Information not available 09/06/2022 Do You Wear A Helmet When Biking? No [id number] Information not available 09/06/2022 What Is Your Level Of Caffeine Consumption? Moderate [id number] Information not available 09/06/2022 In The 14 Days Before Symptom Onset, Have You Had Close Contact With A Laboratory-confirm ed COVID-19 While That Case Was Ill? No [id number] Information not available 09/06/2022 In The 14 Days Before Symptom Onset, Have You Had Close Contact With A Person Who Is Under Investigation For COVID-19 While That Person Was Ill? No [id number] Information not available 09/06/2022 What Type Of Diet Are You Following? REGULAR [id number].[id number] Information not available 09/06/2022 What Is The Highest Grade Or Level Of School You Have Completed Or The Highest Degree You Have Received? 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 No [id number] [id number] Information not available 09/06/2022 What Is The Fluoride Status Of Your Home? Unknown [id number] [id number] Information not available 09/06/2022 Are There Any Guns Present In Your Home? No [id number] Information not available 09/06/2022 Do You Use Insect Repellent Routinely? Yes [id number] Information not available 09/06/2022 Do You Have A Medical Power Of Director Of Hospitality? No [id number] 2912 Information not available 09/06/2022 What Was The Date Of Your Most Recent Tobacco Screening? 04/04/2021 [id number] Information not available 09/06/2022 Have You Ever Been Counseled For Unhealthy Alcohol Use? No [id number] Information not available 09/06/2022 Do You Have Any Pets? No [id number].[id number] 1190 Information not available 09/06/2022 What Is Your Relationship Status? MIGRATION.[id number] 1216 Information not available 09/06/2022 Do You Use Your Seat Belt Or Car Seat Routinely? Yes [id number] 3970 Information not available 09/06/2022 Do You Have Smoke And Carbon Monoxide Detectors In Your Home? Yes [id number].[id number] 7693 Information not available 09/06/2022 Are You Passively Exposed To Smoke? No [id number].[id number] 0439 Information not available 09/06/2022 Are There Any Smokers In Your House? No MIGRATION.[id number] 5153 Information not available 09/06/2022 Do You Feel Stressed (tense, Restless, Nervous, Or Anxious, Or Unable To Sleep At Night)? [id number] MIGRATION.[id number] 0419 Information not available 09/06/2022 Do You Use Any Illicit Or Recreational Drugs? No [id number] Information not available 09/06/2022 Do You Use Sunscreen Routinely? Yes [id number] Information not available 09/06/2022 Has Tobacco Cessation Counseling Been Provided? No [id number] Information not available 09/06/2022 Have You Recently Traveled Abroad? No [id number] Information not available 09/06/2022 Do You Have Any Dietary Restrictions? No [id number] Information not available 09/06/2022 Do You Or Have You Ever Used Any Other Forms Of Tobacco Or Nicotine? No [id number] Information not available 09/06/2022 Sex: Unknown Functional Status Question Answer Note LastModified by Organizat ion Details LastModified Time What is your exercise level? Moderate [id number] Information not available 09/06/2022 Mental Status None recorded. Family History Relationship Description Onset Age of this Age Resolved Age Notes LastModified by Organization Details LastModified Time Mother Diabetes mellitus [id number] Not available 09/06/2022 19:49:01 Mother Disease of liver [id number] Not available 09/06/2022 19:49:01 Mother Cerebrovascu lar accident [id number] Not available 09/06/2022 19:49:01 Father Hypertensive disorder [id number] Not available 09/06/2022 19:49:01 Medical History Condition [...] mcg/0.3 mL dose 1 completed Not Available [facility] 09/06/2022 19:50:25 COVID-19, mRNA, LNP-S, PF, 30 mcg/0.3 mL dose 1 completed Not Available [facility] 09/06/2022 19:50:25 COVID-19, mRNA, LNP-S, PF, 100 mcg/0.5mL dose or 50 mcg/0.25mL dose 1 completed Not Available [facility] 09/06/2022 19:50:25 Influenza, split virus, quadrivalent, preservative 1 completed Not Available [facility] 09/06/2022 19:50:25 Influenza, split virus, quadrivalent, preservative 9 completed Not Available [facility] 09/06/2022 19:50:25 tetanus toxoid, unspecified formulation 1 completed Not Available [facility] 09/06/2022 19:50:25 Influenza, split virus, quadrivalent, PF 0 completed Not Available [facility] 09/06/2022 19:50:25 Influenza, split virus, quadrivalent, PF 8 completed Not Available [facility] 09/06/2022 19:50:25 influenza, unspecified formulation 3 completed VIELKA Villatoro, [facility] 05/01/2023 15:40:46 COVID-19, mRNA, LNP-S, PF, 100 mcg/0.5mL dose or 50 mcg/0.25mL dose 3 completed VIELKA Villatoro, [facility] 05/01/2023 15:41:37 Past Encounters Encounter ID Performer Location Encounter Start Date Encounter Closed Date Diagnosis/Indication Diagnosis SNOMED-CT Code Diagnosis ICD10 Code Diagnosis Note [id number] [facility] [address] [place] [address] 04/04/2021 00:00:00 04/04/2021 20:58:30 [id number] [facility] [address] [place] [address] 11/03/2021 00:00:00 11/03/2021 13:58:54 [id number] [facility] [address] [place] [address] 05/01/2022 00:00:00 05/06/2022 14:47:59 [id number] [facility] [address] [place] [address] 08/08/2022 00:00:00 08/08/2022 15:39:20 [id number] KADEN Matson [facility] [place] [address] [place] [address] 04/10/2023 09:21:01 04/10/2023 10:03:04 Adult health examination 743197764 Z00.01 annual wellness exam completed Gastroesop hageal reflux disease 626808718 K21.9 EGD completed. NERD and GE junction. localized gastritis. Premenstru al dysphoric disorder 446366 F32.81 stable and on 40mg during menses Cholesterol screening 27 6543987 Z13.220 fasting lipids due Diabetes m ellitus screening 069706633 Z13.1 screening diabetes ordered Long-term drug therapy [id number] Z79.899 routine annual labs ordered. Screening mammography 24 184533 Z12.31 mammogram due Menstrual migraine 29216 000 G43.829 samples of ubrelvy 100mg for trial Health Concerns Section Related Observation LastModified by Organization Detai ls LastModified Time None Recorded Concern Status LastModified by Organization Details LastModified Time None Recorded Advance Directives Directive N: Payers Encounter Date Sequence Insurance Name Policy Number Policy Gamez Covered Member ID Gamez Member ID Guarantor Name 04/10/2023 1 [facility] [id number] [place] [id number] Christina Majano Notes Date Note Type Note Provider Name and Address Organization Details Recorded Time 04/04/2021 text/html Anxiety, General ized DisorderReported bypatient.Severity:mi ld Modifying Factors:other medications Associated Symptoms:excess anxietyNotes:stable on lexapro 10mg daily. Not Available [place] [facility] [employer] 04/04/2021 20:58:30 11/03/2021 text/html Pap/PelvicReport ed bypatient.Context:izzy [...] scheduled to go in December) Not Available [facility] 11/03/2021 13:58:54 05/01/2022 text/html Anxiety/Depressi onRep orted [...] good; no apathy; maintaining functionality Not Available [facility] 05/06/2022 14:47:59 08/08/2022 text/html Reflux/GERDRepor kirill bypatient.Symptomshea rtburn Quality:burning;stabb ing;pressure Severity:waking up at night;worsening Onset/Timing:daily; occurs at night/while sleeping Context:non-smoker; no drug/alcohol abuse; no drug alcohol withdrawal Alleviating Factors:nothing helps Associated Symptoms:belching/bur ping;nausea;heartburn ;bloating Not Available [facility] 08/08/2022 15:39:20 04/10/2023 text/html wellness KADEN Matson [address] [place] [address], [phone], [employer] 05/07/2023 00:08:16 04/10/2023 text/html Anxiety/Depressi onRep orted [...] fatigue; no throat pain KADEN Matson [address] [facility], [facility] [address], [place], [address], [facility] 05/07/2023 00:08:16 OBGyn Episode No OBEpisode recorded.
== END 2024-10-16 06:49 | disposition home or self-care (01) ==
PROVIDERS: PCP Physician Assistant; Visit Provider Physician Assistant
DX: R06.00 Dyspnea, unspecified (principal)
CPT/HCPCS: 71275; Q9967

== ENCOUNTER 2025-04-16 08:08 | Outpatient (CLI) | payer OTHER, SELFPAY ==
--- NOTE | ~2025-04-16 | XR_ITS ---
EXAMINATION: XR chest 2V, 04/16/2025 8:40 CDT HISTORY: wheezing COMPARISON: No comparisons available. Technique: 2 views obtained. Findings: The lungs are clear, no effusion. No pneumothorax. Heart is normal size. Mediastinal and hilar contours are within normal limits. Bony thorax no acute abnormality. Impression: No acute cardiopulmonary abnormality. Reviewed, dictated and finalized at location [facility]. Impression: No acute cardiopulmonary abnormality.
== END 2025-04-16 08:09 | disposition home or self-care (01) ==
PROVIDERS: PCP Physician Assistant; Visit Provider Physician Assistant
DX: R06.2 Wheezing (principal)
CPT/HCPCS: 71046